=== PATIENT | female | born 1980 | race Caucasian/White ===

== ENCOUNTER 2020-10-24 11:56 | Outpatient (REF) | payer OTHER, SELFPAY ==
--- NOTE | ~2020-10-24 | XR_ITS ---
EXAMINATION: XR KNEE, LEFT CLINICAL INFORMATION: Pain left knee COMPARISON: Left knee 12/15/2013 TECHNIQUE: 3 views of the left knee. FINDINGS: There is mild loss of patellar femoral compartment joint space. The medial and lateral compartment joint space is normal. No loose bodies, fracture or joint effusion seen. There is a large joint proximal tibial osteochondroma extending of the left proximal lateral cortex laterally. No soft tissue thickening or calcification seen. XR/XR knee LT 3V IMPRESSION: Mild narrowing of patellofemoral compartment left knee likely early degenerative changes. 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
== END 2020-10-24 11:57 | disposition home or self-care (01) ==
LOC: HO.XRAY 11:56
PROVIDERS: PCP Internal Medicine; Visit Provider Internal Medicine
DX: M25.562 Pain in left knee (principal)
CPT/HCPCS: 73562

== ENCOUNTER 2021-01-16 15:28 | Outpatient (REF) | payer OTHER, SELFPAY ==
--- NOTE | ~2021-01-16 | XR_ITS ---
EXAMINATION: XR HIP, RIGHT CLINICAL INFORMATION: Right hip pain. COMPARISON: 03/19/2018 TECHNIQUE: Two views of the right hip. FINDINGS: Once again, no significant abnormality is seen involving the hip joint. Joint space well maintained. No fractures or significant degenerative change is present. XR/XR hip RT min 2V IMPRESSION: Unremarkable unchanged right hip.
== END 2021-01-16 15:29 | disposition home or self-care (01) ==
LOC: HO.XRAY 15:28
PROVIDERS: PCP Internal Medicine; Visit Provider Student in an Organized Health Care Education/Training Program
DX: M25.551 Pain in right hip (principal); G89.29 Other chronic pain
CPT/HCPCS: 73502; 99212

== ENCOUNTER 2021-01-18 19:04 | Outpatient (REF) | payer OTHER, SELFPAY ==
--- NOTE | ~2021-01-18 | MR_ITS ---
EXAMINATION: MR HIP WITHOUT CONTRAST, RIGHT CLINICAL INFORMATION: Right hip pain. COMPARISON: Right hip MRI dated November 14, 2018. TECHNIQUE: MRI of the right hip was obtained using routine sequences on a high-field strength magnet. FINDINGS: Bones/Cartilage: The bone marrow signal intensity is within normal limits. No fracture line or bone marrow edema. The sacroiliac joints and symphysis pubis are within normal limits. No erosion or periosteal edema. Right hip cartilage is preserved. Labrum: Partial tear of the anterior labrum (8:8) remaining labrum is normal signal morphology. Ligament/capsule: No capsular thickening. Visualized ligaments are intact. Tendons: The hamstring origins and tendon insertions are intact. Miscellaneous: No bursal fluid is seen. The muscles are normal in signal intensity and morphology. Normal physiologic volume of pelvic ascites. Uterus is anteverted. No adnexal mass. Nabothian cysts noted. Ovaries are normal in appearance. Visualized small and large bowel are normal in caliber. No inguinal hernia. No pelvic or inguinal lymphadenopathy. MR/MR hip RT wo con IMPRESSION: Right hip: 1. Small partial tear in the anterior labrum. 2. Preserved hip articular cartilage.
== END 2021-01-18 19:05 | disposition home or self-care (01) ==
LOC: HO.MRI 19:04
PROVIDERS: Visit Provider Student in an Organized Health Care Education/Training Program
DX: M25.551 Pain in right hip (principal)
CPT/HCPCS: 73721

== ENCOUNTER 2021-02-19 09:54 | Outpatient (REF) | payer OTHER, SELFPAY ==
[2021-02-19 10:31] LABS: MANUAL DIFF FLAG NO
[2021-02-19 10:36] LABS: Basophils Percent Auto 0.4 % (0-2); Eosinophils Percent Auto 0.8 % (0-4); Hematocrit 34.4 % (37-47); Hemoglobin 10.6 g/dl (12.0-16.0); Lymphocytes Absolute Auto 1.9 X10*3/uL (1.2-4.9); Lymphocytes Percent Auto 38.3 % (20-40); Mean Corpuscular HGB Conc 30.8 g/dl (31.0-35.0); Mean Corpuscular Hemoglobin 24.8 pg (27.0-33.0); Mean Corpuscular Volume 80.6 fL (80-98); Mean Platelet Volume 11.4 fL (9.4-12.3); Monocytes Absolute Auto 0.3 X10*3/uL (0.1-1.2); Neutrophils Absolute Auto 2.6 X10*3/uL (2.0-8.3); Neutrophils Percent Auto 53.5 % (45-73); Platelet Count 187 X10*3/uL (160-400); Red Blood Count 4.27 X10*6/uL (4.20-5.50); Red Cell Distribution Width 16.4 % (11.0-16.0); White Blood Count 4.9 X10*3/uL (4.8-10.8)
[2021-02-19 11:00] LABS: Alanine Aminotransferase 23 U/L (0-31); Albumin Level 4.1 g/dL (3.5-5.0); Alkaline Phosphatase 46 U/L (39-117); Anion Gap 11 (12-20); Aspartate Amino Transferase 24 U/L (5-31); Bilirubin Total 0.5 mg/dL (0.0-1.0); Blood Urea Nitrogen 11 mg/dL (9-16); Carbon Dioxide 24 mmol/L (22-29); Chloride 109 mmol/L (96-108); Cholesterol 154 mg/dL; Estimated Glomerular Filt Rate > 60; Glucose Fasting 93 mg/dL (60-99); HDL Cholesterol 60 mg/dL; LDL Cholesterol Calculated 85 mg/dl; Potassium 4.5 mmol/L (3.3-5.1); Sodium 139 mmol/L (135-145); Total Protein 7.1 g/dL (6.5-8.0); Triglycerides 49 mg/dL
[2021-02-19 11:22] LABS: Thyroid Stimulating Hormone 1.41 uIU/mL (0.32-4.0)
[2021-02-23 14:01] LABS: Vitamin D 25-OH, D2 <4 ng/mL; Vitamin D 25-OH, D3 20 ng/mL; Vitamin D 25-OH, Total 20 ng/mL (30-100)
== END 2021-02-19 09:55 | disposition home or self-care (01) ==
LOC: HO.LAB 09:54
PROVIDERS: PCP Internal Medicine; Visit Provider Internal Medicine
DX: E55.9 Vitamin D deficiency, unspecified (principal); E66.9 Obesity, unspecified; R42 Dizziness and giddiness
CPT/HCPCS: 36415; 80053; 80061; 82306; 84443; 85025

== ENCOUNTER 2021-07-02 14:14 | Outpatient (REF) | payer OTHER, SELFPAY | END 2021-07-02 14:15 | disposition home or self-care (01) | LOC: HO.LNP 14:14 | PROVIDERS: Visit Provider Physician Assistant | DX: Z20.822 Contact with and (suspected) exposure to COVID-19 (principal); J02.9 Acute pharyngitis, unspecified | CPT/HCPCS: U0003; U0005 ==

== ENCOUNTER 2021-08-07 09:23 | Outpatient (REF) | payer OTHER, SELFPAY ==
[2021-08-11 16:31] LABS: HPV mRNA E6/E7 rflx Not Detected (Not Detected)
== END 2021-08-07 09:24 | disposition home or self-care (01) ==
LOC: HO.LAB 09:23
PROVIDERS: Visit Provider Advanced Practice Midwife
DX: Z01.419 Encounter for gynecological examination (general) (routine) without abnormal findings (principal); Z11.51 Encounter for screening for human papillomavirus (HPV)
CPT/HCPCS: 87624; 88142

== ENCOUNTER 2021-08-13 11:15 | Outpatient (REF) | payer OTHER, SELFPAY ==
--- NOTE | ~2021-08-13 | MM_ITS ---
EXAMINATION: MM SCREENING DIGITAL BREAST TOMOSYNTHESIS, BILATERAL CLINICAL INFORMATION: Screening. Asymptomatic. 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 The lifetime risk of breast cancer based on the Tyrer-Cuzick Model is 8%. COMPARISON: Mammography: 12/13/2014 (baseline) TECHNIQUE: Digital breast tomosynthesis is performed in both the craniocaudal and mediolateral oblique views along with computer-aided detection (CAD). Synthesized 2D images are generated from the tomosynthesis. FINDINGS: There are scattered areas of fibroglandular density (ACR BI-RADS breast composition Category b). Breast tissue composition borders on predominantly fatty. Breasts are symmetrically decreased in size with mild increased breast tissue attenuation consistent with the intentional weight loss. Background stromal markings are otherwise stable. There is no mass or architectural abnormality or abnormal calcifications. No significant changes. MM/MM tomosynthesis screening BI IMPRESSION: No mammographic evidence of malignancy. ASSESSMENT: BI-RADS 2: Benign RECOMMENDATION: Routine annual mammography screening. This patient's information was entered into a reminder system with a target due date for their next mammogram.
== END 2021-08-13 11:16 | disposition home or self-care (01) ==
LOC: HO.MAMMO 11:15
PROVIDERS: PCP Internal Medicine; Visit Provider Advanced Practice Midwife
DX: Z12.31 Encounter for screening mammogram for malignant neoplasm of breast (principal)
CPT/HCPCS: 77063; 77067

== ENCOUNTER → 2021-11-01 10:34 | Outpatient (BNVA) | payer OTHER, SELFPAY | PROVIDERS: PCP Internal Medicine; Visit Provider Nurse Practitioner Family | DX: M25.551 Pain in right hip (principal); G89.29 Other chronic pain; R20.0 Anesthesia of skin | CPT/HCPCS: 99212 ==

== ENCOUNTER → 2021-11-14 14:48 | Outpatient (BNVA) | payer OTHER, SELFPAY | PROVIDERS: PCP Internal Medicine; Visit Provider Orthopaedic Surgery | DX: Z13.89 Encounter for screening for other disorder (principal) ==

== ENCOUNTER 2021-11-30 08:14 | Outpatient (REF) | payer OTHER, SELFPAY ==
[2021-11-30 09:27] LABS: Alanine Aminotransferase 16 U/L (0-31); Albumin Level 4.1 g/dL (3.5-5.0); Alkaline Phosphatase 46 U/L (39-117); Anion Gap 12 (12-20); Aspartate Amino Transferase 21 U/L (5-31); Bilirubin Total 0.3 mg/dL (0.0-1.0); Blood Urea Nitrogen 15 mg/dL (9-16); Calcium 9.5 mg/dL (8.4-10.2); Carbon Dioxide 24 mmol/L (22-29); Chloride 107 mmol/L (96-108); Estimated Glomerular Filt Rate > 60; Glucose Random 85 mg/dL (60-115); Potassium 3.9 mmol/L (3.3-5.1); Sodium 139 mmol/L (135-145)
== END 2021-11-30 08:15 | disposition home or self-care (01) ==
LOC: HO.LAB 08:14
PROVIDERS: PCP Internal Medicine; Visit Provider Nurse Practitioner Family
DX: M25.551 Pain in right hip (principal); G89.29 Other chronic pain
CPT/HCPCS: 36415; 80053

== ENCOUNTER → 2021-12-04 14:58 | Outpatient (BNVA) | payer OTHER, SELFPAY | PROVIDERS: PCP Internal Medicine; Visit Provider Physician Assistant | DX: M54.16 Radiculopathy, lumbar region (principal) | CPT/HCPCS: 99212 ==

== ENCOUNTER → 2021-12-18 14:42 | Outpatient (BNVA) | payer OTHER, SELFPAY | PROVIDERS: PCP Internal Medicine; Visit Provider Orthopaedic Surgery | DX: G56.01 Carpal tunnel syndrome, right upper limb (principal) | CPT/HCPCS: 99202 ==

== ENCOUNTER → 2022-01-16 08:22 | Outpatient (BNVA) | payer OTHER, SELFPAY | PROVIDERS: PCP Internal Medicine; Visit Provider Anesthesiology | DX: M54.16 Radiculopathy, lumbar region (principal); M47.816 Spondylosis without myelopathy or radiculopathy, lumbar region; M51.36 Other intervertebral disc degeneration, lumbar region; G89.4 Chronic pain syndrome; M24.159 Other articular cartilage disorders, unspecified hip | CPT/HCPCS: 99202 ==

== ENCOUNTER 2022-01-17 10:43 | Outpatient (REF) | payer OTHER, SELFPAY | END 2022-01-17 10:44 | disposition home or self-care (01) | LOC: HO.MAMMO 10:43 | PROVIDERS: Visit Provider Internal Medicine | DX: Z13.89 Encounter for screening for other disorder (principal) ==

== ENCOUNTER 2022-01-17 11:31 | Day surgery (SDC) | payer OTHER, SELFPAY ==
[2022-01-17 12:11] VITALS: BMI 34.4
[2022-01-17 12:24] VITALS: BP 113/84; PULSE 72; RESP 16; TEMP 36.1; O2SAT 100
--- NOTE | 2022-01-17 13:09 | MHC.SHP ---
Pre-Procedural Eval Section A Date of Service: 01/17/22 The patient is an INPATIENT: No Changes since office visit: No Cold of Flu in the past 2 weeks, No New Medical Problems, No Changes in Medication and No Patient answered all questions The History & Physical has been completed within 30 days and I have reviewed it.: Yes Section B Chief Complaint: CTS Allergies: Allergies Allergy/AdvReac Type Severity Reaction Status Date / Time tramadol [TRAMADOL] Allergy Intermediate DIZZY,N/V, Verified 01/16/22 08:34 nausea,dizziness, dizzy, nausea Plan I have reviewed the history and physical and performed a pertinent physical examination on my patient. No changes have occurred unless specified.
--- NOTE | 2022-01-17 13:09 | W.PM.OPN ---
Operative Note Operative Note Date of Service: 01/17/22 Narrative: Preop diagnosis: 1. Right Carpal tunnel syndrome Postop diagnosis: same Procedure: 1. right Carpal tunnel release Surgeon: Miranda Morales MD Anesthesia: local block using 1% lidocaine with epinephrine Findings: Thickened transverse carpal ligament. EBL: Less than 5 mL Specimens: None Complications: None Disposition: Brought to recovery room in stable condition Plan: Follow-up for 10-14 days for wound check and suture removal Indications: The patient is 41 years old, with right carpal tunnel syndrome that has been unresponsive to nonoperative management. The risks and benefits of operative treatment including but not limited to risk of damage to blood vessels, nerves, tendons, infection, persistent pain, persistent symptoms, or possible need for additional surgery were discussed with the patient and the patient wishes to proceed with surgery. Procedure: Once consent was obtained a local block was performed using a combination of 1% lidocaine with epinephrine. The patient was then brought back to the operating suite and placed on the operative table in supine position. A tourniquet was applied to the proximal aspect of the right upper extremity and the limb was prepped and draped in a standard surgical fashion. Once assured that we had a good block, a 1.5 cm longitudinal incision was made centered over the carpal tunnel. The incision was made through the skin to the subcutaneous tissues using a #15 blade. Dissection was made down to the level of the transverse carpal ligament with care being taken to protect the palmar cutaneous nerve. Once the transverse carpal ligament was clearly visualized, a longitudinal incision was made in the transverse carpal ligament 1st using a #15 blade, then using tenotomy scissors under direct visualization. Care was taken to look for and protect the motor branch of the median nerve when seen in this area. Once satisfied with our carpal tunnel release the wound was copiously irrigated with normal saline and hemostasis was obtained with a brief period of local pressure. The skin edges were reapproximated with some 5.0 nylon suture material and a sterile dressing was applied. The patient appears to have tolerated the procedure well and with no complications. All digits were well vascularized at the conclusion of the case.
[2022-01-17 15:15] VITALS: BP 126/89; PULSE 65; RESP 18; TEMP 37.4; O2SAT 100
== END 2022-01-17 15:25 | disposition home or self-care (01) ==
PROVIDERS: PCP Internal Medicine; Visit Provider Orthopaedic Surgery
PROC: (CPT 64721; principal; 2022-01-17 12:00)
DX: G56.01 Carpal tunnel syndrome, right upper limb (principal); R20.0 Anesthesia of skin; R20.2 Paresthesia of skin; R42 Dizziness and giddiness; E66.9 Obesity, unspecified; Z98.84 Bariatric surgery status; Z88.8 Allergy status to other drugs, medicaments and biological substances
CPT/HCPCS: 64721; J0171

== ENCOUNTER 2022-01-25 12:56 | Outpatient (REF) | payer OTHER, SELFPAY ==
[2022-02-01 07:06] LABS: HPV mRNA E6/E7 rflx Not Detected (Not Detected)
== END 2022-01-25 12:57 | disposition home or self-care (01) ==
LOC: HO.LAB 12:56
PROVIDERS: Visit Provider Advanced Practice Midwife
DX: Z12.4 Encounter for screening for malignant neoplasm of cervix (principal); Z11.51 Encounter for screening for human papillomavirus (HPV)
CPT/HCPCS: 87624; 88142; 99212

== ENCOUNTER → 2022-05-02 10:16 | Outpatient (BNVA) | payer OTHER, SELFPAY | PROVIDERS: PCP Internal Medicine; Visit Provider Nurse Practitioner Family | DX: M25.551 Pain in right hip (principal); M47.816 Spondylosis without myelopathy or radiculopathy, lumbar region; R22.42 Localized swelling, mass and lump, left lower limb; G56.01 Carpal tunnel syndrome, right upper limb; G89.29 Other chronic pain | CPT/HCPCS: 99212 ==

== ENCOUNTER 2022-05-24 14:58 | Outpatient (REF) | payer OTHER, SELFPAY ==
--- NOTE | ~2022-05-24 | XR_ITS ---
EXAMINATION: XR TIBIA AND FIBULA, LEFT CLINICAL INFORMATION: Localized swelling, mass and lump. COMPARISON: X-rays dated 10/24/2020 and MRI dated 03/22/2008 TECHNIQUE: AP and lateral views of the left tibia and fibula were obtained. FINDINGS: No change in size or appearance of a sessile osteochondroma along the lateral aspect of the proximal tibial metaphysis. No fractures. No dislocation. Soft tissues unremarkable. XR/XR tibia fibula LT 2V IMPRESSION: No change in size of the osteochondroma along the proximal lateral tibial metaphysis.
== END 2022-05-24 14:59 | disposition home or self-care (01) ==
LOC: HO.XRAY 14:58
PROVIDERS: PCP Internal Medicine; Visit Provider Nurse Practitioner Family
DX: R22.42 Localized swelling, mass and lump, left lower limb (principal)
CPT/HCPCS: 73590

== ENCOUNTER → 2022-05-28 07:52 | Outpatient (BNVA) | payer OTHER, SELFPAY | PROVIDERS: PCP Internal Medicine; Visit Provider Physician Assistant | DX: R22.40 Localized swelling, mass and lump, unspecified lower limb (principal) | CPT/HCPCS: 99202 ==

== ENCOUNTER 2022-06-19 15:42 | Outpatient (REF) | payer OTHER, SELFPAY ==
--- NOTE | ~2022-06-19 | MR_ITS ---
EXAMINATION: MR LOWER EXTREMITY WITHOUT CONTRAST, LEFT CLINICAL INFORMATION: Localized swelling, mass, lump COMPARISON: X-rays of the left tibia-fibula April 2022 and multiple prior radiographs dating back to September 2006. MR of the left lower extremity October 2006 without and with contrast and MRI of the left knee/lower extremity February 2008 without and with contrast. TECHNIQUE: MRI of the left lower extremity is performed without contrast on a high field MRI scanner. FINDINGS: Again noted is the eccentric osseous lesion in the proximal metaphysis of the tibia with intramedullary continuity consistent with an osteochondroma. The lesion is essentially unchanged in size and signal compared to prior. This measures up to 2.8 cm transverse, 3 cm AP and 6.7 cm craniocaudal. There is minimal intermediate signal heterogeneity within the central portion of the exostosis, unchanged compared to prior. There is minimal, if any, increased T2 signal along the surface compatible with an up to 1 mm cartilaginous cap along the surface of the lesion. The lesion abuts the anterior aspect of the proximal fibula as before. The remaining visualized bone and joints are unremarkable. MUSCLES/TENDONS: Some very mild increased T2 signal within the medial head of the gastrocnemius compatible with mild muscle strain. SUBCUTANEOUS SOFT TISSUES: Unremarkable. MR/MR lower leg LT wo con IMPRESSION: 1. Stable appearance of the osteochondroma of the proximal tibia. 2. Minimal if any change in the appearance of the cartilaginous cap. The cartilage cap appears thinner or less apparent compared to prior examination. This may be in part due to slight differences in the technique of the examination given the larger [id number] on the present examination compared with most recent 2007. 3. Minimal muscle strain of the medial head of the gastrocnemius.
== END 2022-06-19 15:43 | disposition home or self-care (01) ==
LOC: HO.MRI 15:42
PROVIDERS: Visit Provider Physician Assistant
DX: R22.40 Localized swelling, mass and lump, unspecified lower limb (principal)
CPT/HCPCS: 73718

== ENCOUNTER → 2022-07-02 07:54 | Outpatient (BNVA) | payer OTHER, SELFPAY | PROVIDERS: PCP Internal Medicine; Visit Provider Physician Assistant | DX: D16.22 Benign neoplasm of long bones of left lower limb (principal) | CPT/HCPCS: 99212 ==

== ENCOUNTER 2022-10-05 08:53 | Outpatient (REF) | payer OTHER, SELFPAY ==
--- NOTE | ~2022-10-05 | MM_ITS ---
EXAMINATION: MM SCREENING DIGITAL BREAST TOMOSYNTHESIS, BILATERAL CLINICAL INFORMATION: Screening. Asymptomatic. The lifetime risk of breast cancer based on the Tyrer-Cuzick Model is 9%. COMPARISON: Mammography: 08/13/2021, 12/13/2014 (baseline) TECHNIQUE: Digital breast tomosynthesis is performed in both the craniocaudal and mediolateral oblique views along with computer-aided detection (CAD). Synthesized 2D images are generated from the tomosynthesis. FINDINGS: There are scattered areas of fibroglandular density (ACR BI-RADS breast composition Category b). Breast tissue composition borders on predominantly fatty. Background stromal and fibroglandular densities are unremarkable. There is no significant mass or architectural abnormality or developing density. There are 2 small circumscribed nodes posterior outer left breast on CC view, not previously within [id number]. No abnormal calcifications. The axilla and skin contours are unremarkable. MM/MM tomosynthesis screening BI IMPRESSION: No mammographic evidence of malignancy. ASSESSMENT: BI-RADS 2: Benign RECOMMENDATION: Routine annual mammography screening. This patient's information was entered into a reminder system with a target due date for their next mammogram.
== END 2022-10-05 08:54 | disposition home or self-care (01) ==
LOC: HO.MAMMO 08:53
PROVIDERS: PCP Internal Medicine; Visit Provider Internal Medicine
DX: Z12.31 Encounter for screening mammogram for malignant neoplasm of breast (principal)
CPT/HCPCS: 77063; 77067

== ENCOUNTER 2023-01-08 09:00 | Outpatient (RCR) | payer OTHER, SELFPAY | END 2023-01-30 08:55 | disposition home or self-care (01) | LOC: HO.PT 09:00 | PROVIDERS: PCP Internal Medicine; Visit Provider Orthopaedic Surgery Orthopaedic Trauma | DX: D16.22 Benign neoplasm of long bones of left lower limb (principal) | CPT/HCPCS: 97110; 97140; 97161 ==

== ENCOUNTER 2023-05-22 08:11 | Outpatient (REF) | payer OTHER, SELFPAY ==
[2023-05-22 09:16] LABS: Appearance Urine Clear; Color Urine Yellow; Glucose Urine UA Negative (Negative); Leukocyte Esterase Urine Moderate (2+) (Negative); Nitrite Urine Negative (Negative); Specific Gravity - Urine 1.015 (1.005-1.025); UMIC TRIGGER UACC YES; Urine Blood Negative (Negative); Urine Ketones Negative (Negative); Urine Protein Negative (Neg-Trace)
[2023-05-22 09:22] LABS: Bacteria Urine None Seen (None Seen); Hyaline Casts Urine 0-2 /LPF (0-2); Squamous Epithelial Cell Urine 0-2 /HPF (0-2); UACC Culture Trigger YES
== END 2023-05-22 08:12 | disposition home or self-care (01) ==
LOC: HO.LAB 08:11
PROVIDERS: PCP Internal Medicine; Visit Provider Internal Medicine
DX: R39.9 Unspecified symptoms and signs involving the genitourinary system (principal)
CPT/HCPCS: 81001; 87086; 87088; 87186

== ENCOUNTER 2023-08-07 09:47 | Outpatient (AMB) | payer OTHER, SELFPAY ==
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
[2023-08-07 09:54] VITALS: BP 110/70; PULSE 89; TEMP 36.3; O2SAT 100; BMI 37.5
== END 2023-08-07 10:49 | disposition home or self-care (01) ==
PROVIDERS: PCP Internal Medicine; Visit Provider Nurse Practitioner Family
DX: M25.551 Pain in right hip (principal); G89.29 Other chronic pain; M47.27 Other spondylosis with radiculopathy, lumbosacral region; M70.61 Trochanteric bursitis, right hip; R76.0 Raised antibody titer; I73.00 Raynaud's syndrome without gangrene
CPT/HCPCS: 20610; 99214

== ENCOUNTER → 2023-08-07 09:47 | Outpatient (BNVA) | payer OTHER, SELFPAY | PROVIDERS: PCP Internal Medicine; Visit Provider Nurse Practitioner Family | DX: M70.61 Trochanteric bursitis, right hip (principal); M47.27 Other spondylosis with radiculopathy, lumbosacral region; M25.551 Pain in right hip; R76.0 Raised antibody titer; I73.00 Raynaud's syndrome without gangrene; G89.29 Other chronic pain | CPT/HCPCS: 20610 ==

== ENCOUNTER 2023-08-07 11:03 | Outpatient (REF) | payer OTHER, SELFPAY ==
[2023-08-07 13:08] LABS: MANUAL DIFF FLAG NO
[2023-08-07 13:13] LABS: Basophils Percent Auto 0.3 % (0-2); Eosinophils Percent Auto 0.3 % (0-4); Hematocrit 30.4 % (37.0-47.0); Hemoglobin 8.7 g/dl (12.0-16.0); Imm Gran Abs Auto 0.02 X10*3/uL (0.00-0.03); Imm Gran Pct Auto 0.3 % (0.0-0.4); Lymphocytes Absolute Auto 1.9 X10*3/uL (1.2-4.9); Lymphocytes Percent Auto 33.4 % (20-40); Mean Corpuscular HGB Conc 28.6 g/dl (31.0-35.0); Mean Corpuscular Hemoglobin 19.7 pg (27.0-33.0); Mean Corpuscular Volume 68.9 fL (80.0-98.0); Mean Platelet Volume 10.2 fL (9.4-12.3); Monocytes Absolute Auto 0.3 X10*3/uL (0.1-1.2); Monocytes Percent Auto 5.8 % (2-11); Neutrophils Absolute Auto 3.4 x10*3/uL (2.0-8.3); Neutrophils Percent Auto 59.9 % (45-73); Platelet Count 262 X10*3/uL (160-400); Red Blood Count 4.41 X10*6/uL (4.20-5.50); Red Cell Distribution Width 20.5 % (11.0-16.0); White Blood Count 5.7 X10*3/uL (4.8-10.8)
[2023-08-07 13:35] LABS: Alanine Aminotransferase 14 U/L (0-31); Albumin Level 4.2 g/dL (3.5-5.0); Alkaline Phosphatase 49 U/L (39-117); Anion Gap 12 (12-20); Aspartate Amino Transferase 20 U/L (5-31); Bilirubin Total 0.4 mg/dL (0.0-1.0); Blood Urea Nitrogen 10 mg/dL (9-16); C Reactive Protein < 0.10 mg/dL (< or = 0.50); Calcium 9.3 mg/dL (8.4-10.2); Carbon Dioxide 25 mmol/L (22-29); Chloride 106 mmol/L (96-108); Estimated Glomerular Filt Rate > 60; Glucose Random 89 mg/dL (60-115); Potassium 4.1 mmol/L (3.3-5.1); Sodium 139 mmol/L (135-145); Total Protein 7.6 g/dL (6.5-8.0)
[2023-08-07 13:52] LABS: Erythrocyte Sedimentation Rate 14 MM/HR (0-20)
[2023-08-11 09:38] LABS: Complement C3 16 mg/dL (83-193)
[2023-08-11 20:59] LABS: Antibody to SS-A Antigen <1.0 NEG AI (<1.0 NEG); Antibody to SS-B Antigen <1.0 NEG AI (<1.0 NEG); SM/Ribonucleoprotein Ab <1.0 NEG AI (<1.0 NEG); Smith Protein <1.0 NEG AI (<1.0 NEG)
[2023-08-13 11:08] LABS: Anti Nuclear Antibody Screen NEGATIVE (NEGATIVE)
[2023-08-15 15:03] LABS: Cyclic Citrullinated Peptide <16 UNITS
== END 2023-08-07 11:04 | disposition home or self-care (01) ==
LOC: HO.10HDL 11:03
PROVIDERS: Visit Provider Nurse Practitioner Family
DX: I73.00 Raynaud's syndrome without gangrene (principal); M79.674 Pain in right toe(s); M79.675 Pain in left toe(s); G89.29 Other chronic pain; M79.641 Pain in right hand; M79.642 Pain in left hand; Z79.899 Other long term (current) drug therapy
CPT/HCPCS: 36415; 80053; 85025; 85652; 86038; 86140; 86160; 86200; 86235

== ENCOUNTER 2023-10-01 10:52 | Outpatient (AMB) | payer OTHER, SELFPAY ==
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
[2023-10-01 13:51] VITALS: BP 112/60; PULSE 88; TEMP 36.2; O2SAT 99; BMI 38.0
== END 2023-10-01 14:51 | disposition home or self-care (01) ==
PROVIDERS: PCP Internal Medicine; Visit Provider Nurse Practitioner Family
DX: M35.89 Other specified systemic involvement of connective tissue (principal); G89.29 Other chronic pain; M47.27 Other spondylosis with radiculopathy, lumbosacral region; I73.00 Raynaud's syndrome without gangrene; M70.61 Trochanteric bursitis, right hip; D64.9 Anemia, unspecified
CPT/HCPCS: 99213

== ENCOUNTER → 2023-10-01 10:52 | Outpatient (BNVA) | payer OTHER, SELFPAY | PROVIDERS: PCP Internal Medicine; Visit Provider Nurse Practitioner Family | DX: M25.551 Pain in right hip (principal); M47.27 Other spondylosis with radiculopathy, lumbosacral region; M70.61 Trochanteric bursitis, right hip; M35.9 Systemic involvement of connective tissue, unspecified; I73.00 Raynaud's syndrome without gangrene; D64.9 Anemia, unspecified; G89.29 Other chronic pain | CPT/HCPCS: 99212 ==

== ENCOUNTER 2023-10-11 09:28 | Outpatient (REF) | payer OTHER, SELFPAY ==
--- NOTE | ~2023-10-11 | MM_ITS ---
EXAMINATION: MM SCREENING DIGITAL BREAST TOMOSYNTHESIS, BILATERAL CLINICAL INFORMATION: Screening. Asymptomatic. COMPARISON: Mammography: This study is compared with prior exams dating back to 2015. TECHNIQUE: Digital breast tomosynthesis is performed in both the craniocaudal and mediolateral oblique views along with computer-aided detection (CAD). Synthesized 2D images are generated from the tomosynthesis. FINDINGS: There are scattered areas of fibroglandular density (ACR BI-RADS breast composition Category b). There are no significant masses, abnormal calcifications, or other abnormalities. MM/MM tomosynthesis screening BI IMPRESSION: No mammographic evidence of malignancy. ASSESSMENT: BI-RADS BI-RADS 1 - Negative RECOMMENDATION: Routine annual mammography screening. 1 year F/U This examination should not preclude the clinical evaluation of a suspicious palpable abnormality. This patient's information was entered into a reminder system with a target due date for their next mammogram.
== END 2023-10-11 09:29 | disposition home or self-care (01) ==
LOC: HO.MAMMO 09:28
PROVIDERS: PCP Internal Medicine; Visit Provider Internal Medicine
DX: Z12.31 Encounter for screening mammogram for malignant neoplasm of breast (principal)
CPT/HCPCS: 77063; 77067

== ENCOUNTER → 2023-10-11 09:30 | Outpatient (BNV) | payer OTHER, SELFPAY | PROVIDERS: PCP Internal Medicine; Visit Provider Radiology Diagnostic Radiology | DX: Z12.31 Encounter for screening mammogram for malignant neoplasm of breast (principal) | CPT/HCPCS: 77063; 77067 ==

== ENCOUNTER 2023-10-22 07:58 | Outpatient (AMB) | payer OTHER, SELFPAY ==
[2023-10-22 08:02] VITALS: BP 120/72; BMI 37.9
--- NOTE | 2023-10-22 08:02 | MHC.PC.OV ---
Vital Signs 10/22/23 08:02 Height 5 ft 4 in Weight 221 lb BMI 37.9 BP 120/72 Blood Pressure Location Lt brachial Position Sitting Intake Visit Reasons: Rash all over Intake Note: Patient here for a rash going on a few days Can Cutter Required: No Accompanied by: Self / Same As Patient Allergies tramadol [TRAMADOL] Allergy (Intermediate, Verified 10/22/23 08:22) DIZZY,N/V, nausea,dizziness, dizzy, nausea Medication List - Last Reconciled 10/22/23 by Alee Melendez MD diclofenac sodium 1% (Voltaren Arthritis Pain) 2 grams topical BID ferrous sulfate 325 mg PO DAILY gabapentin 600 mg PO BID 30 days Tobacco use date assessed: 10/22/23 Dental Screening Dental Screen Date: 10/22/23 Did you have a dental visit in the last 12 months?: No Did you have a dental problem in the last 6 months where you did not have access to dental care?: No Was dental information given to patient?: Patient has dentist HPI HPI Comments History of Present Illness Details This is a 43-year-old female with anemia, undifferentiated connective tissue disease and obesity that comes today complaining of a rash that started 5 days ago after eating meatballs that where season with grapes. She did took Benadryl that night and went away. She said the maculopapular pruritic rash restarted 2 days after taking Benadryl out of no where. The rash involves bilateral hip area and lower abdomen. Denies any new plant, detergent or clothing. No one else has a rash in her household. No fever. No other associated symptoms. For her anemia I will order a CBC. She has undifferentiated connective tissue disease follow by Rheumatology which wants her to see Ophthalmology. She is obese with a BMI of 37.9 and was advised to do diet and exercise as tolerated to reach BMI goal less than 30. [facility] Medical History (Updated 10/22/23 @ 10:02 by Alee Melendez MD) Osteochondroma of left lower leg Anemia Undifferentiated connective tissue disease Abnormal antibody titer Spondylosis of lumbosacral spine with radiculopathy Trochanteric bursitis, right hip Bilateral hand pain Chronic pain of toes of both feet Raynaud phenomenon Dizziness Obese Left knee pain Surgical History H/O carpal tunnel repair S/P ORIF (open reduction internal fixation) fracture History of gastrectomy History of tubal ligation History of appendectomy Family History Mother No problems noted. Father Diabetes mellitus Maternal Aunt Breast cancer Social History Housing: House Alcohol intake: current Alcohol intake frequency: holidays/special occasions only Alcohol type: hard liquor Patient Tobacco Use Status: Never used Tobacco e-Cigarette/Vaping Use: Never Used Second Hand Smoke Exposure: No service: No Current occupational status: unemployed Cognitive needs: No Hearing needs: No Vision needs: Yes Female Reproductive History Menstrual Age of Menarche: 13 Questionnaire PHQ-9 Over the last 2 weeks, how often have you been bothered by any of the following problems? 1. Little interest or pleasure in doing things: several days 2. Feeling down, depressed, or hopeless: several days 3. Trouble falling or staying asleep, or sleeping too much: more than half the days 4. Feeling tired or having little energy: nearly every day 5. Poor appetite or overeating: not at all 6. Feeling bad about yourself - or that you are a failure or have let yourself or your family down: not at all 7. Trouble concentrating on things, such as reading the newspaper or watching television: not at all 8. Moving or speaking so slowly that other people could have noticed. Or the opposite - being so fidgety or restless that you have been moving around a lot more than usual: several days 9. Thoughts that you would be better off or of hurting yourself in some way: not at all Total score: 8 Depression Screening Interpretation: Positive Depression Screening Follow-up: Existing condition Depression Screening Done: Yes 76985 - PHQ-9 Billing: Yes Source: Developed by Drs. Braulio Cloud, Sendy Ayala, Thiago Mills and colleagues, with an educational adam from [employer]. Thrive Questionnaire Date Thrive assessed: 10/22/23 I am a: Patient What is your living situation today?: I have a steady place to live Within the past 12 months, did the food you bought not last and you didn't have the money to get more?: Never true Within the past 12 months, did you worry whether your food would run out before you got money to buy more?: Never true Do you have trouble paying for medicines?: No Do you have trouble getting transportation to medical appointments?: No Do you have trouble paying your heating and electricity bill?: No Do you have trouble taking care of your child, family member or friend?: No Do you have trouble with day-to-day activities such as bathing, preparing meals, shopping, managing finances, etc.?: No Are you currently unemployed and looking for a job?: No Are you interested in more education?: No Please select the resources that you would like help with: None Currently or been in a relationship where the following occur: no concerns reported THRIVE Score: 0 AUDIT C Alcohol Use Questionnaire (AUDIT-C) 1. How often do you have a drink containing alcohol?: Monthly or less 2. How many drinks containing alcohol do you have on a typical day when you are drinking?: 1 or 2 3. How often do you have six or more drinks on one occasion?: Never Total Score: 1 SEBAS-7 AMB Questionnaire SEBAS-7 Date SEBAS - 7 assessed: 10/22/23 Feeling nervous, anxious, or on edge: 1 = Several days Not being able to stop or control worryin = Not at all Worrying too much about different things: 1 = Several days Trouble relaxin = Several days Being so restless that it is hard to sit still: 1 = Several days Becoming easily annoyed or irritable: 1 = Several days Feeling afraid as if something awful might happen: 1 = Several days Total SEBAS-7 score (0-4 normal; 5-9 mild; 10-14 moderate; 15-21 severe): 6 Source: Developed by Drs. Braulio Cloud, Sendy Ayala, Thiago Mills and colleagues, with an educational adam from [employer]. SEBAS-7 Assessment Billing SEBAS-7 Assessment Tool: SEBAS-7 Assessment 08638 Review of Systems Const All systems reviewed & are unremarkable except as noted in HPI and below Eyes Reports no additional complaints, Denies change in vision and Denies other visual disturbances ENT Reports sore throat Card Denies chest pain at rest, Denies chest pain with activity, Denies edema, Denies irregular heart rhythm, Denies claudication, Denies dyspnea, Denies dyspnea on exertion, Denies orthopnea, Denies paroxysmal nocturnal dyspnea and Denies slow heart rate Resp Denies cough, Denies dyspnea and Denies dyspnea on exertion Physical exam (Primary Care) Vital Signs: Last Vital Signs BP 120/72 10/22/23 08:02 BMI result Body Mass Index 37.9 Tobacco/Smoking Status: Tobacco use Status Tobacco use date assessed 10/22/23 10/22/23 08:09 Patient Tobacco Use Status Never used Tobacco 10/22/23 08:09 e-Cigarette/Vaping Use Never Used 10/22/23 08:09 PHQ-9: PHQ-9 Score PHQ-9: Total score 8 10/22/23 08:25 Depression Screening Interpretation: Positive Depression Screening Follow-up: Existing condition Thrive Assessment: Date of Thrive Assessment Date Thrive assessed 10/22/23 10/22/23 08:09 Currently or been in a relationship where the following occur: no concerns reported Resp Effort & Inspection: normal respiratory effort Auscultation: clear to auscultation bilaterally Cardio Jugular venous distension: no JVD Rate: regular rate Rhythm: regular rhythm Heart sounds: S1 normal heart sound present and S2 normal heart sound present Extrem General: Yes full ROM Assessment and Plan Assessment & Plan (1) Rash: Code(s): R21 - Rash and other nonspecific skin eruption Plan: RAST ordered. Start cetirizine. (2) Undifferentiated connective tissue disease: Code(s): M35.9 - Systemic involvement of connective tissue, unspecified Plan: Follow-up with rheumatology. (3) Anemia: Code(s): D64.9 - Anemia, unspecified Qualifiers: Anemia type: iron deficiency Iron deficiency anemia type: chronic blood loss Qualified Code(s): D50.0 - Iron deficiency anemia secondary to blood loss (chronic) Plan: Continue ferrous sulfate. Repeat hemoglobin. (4) Class 2 obesity with body mass index (BMI) of 37.0 to 37.9 in adult: Code(s): E66.9 - Obesity, unspecified; Z68.37 - Body mass index [BMI] 37.0-37.9, adult Qualifiers: Obesity type: due to excess calories Serious obesity comorbidity presence: without serious comorbidity Qualified Code(s): E66.09 - Other obesity due to excess calories; Z68.37 - Body mass index [BMI] 37.0-37.9, adult Plan: Start diet and exercise. BMI goal is less than 30. Orders: Orders Complete Blood Count Auto Diff Today D64.9 - Anemia, unspecified Rast Allergen Today R21 - Rash and other nonspecific skin eruption IRON PROFILE Today D64.9 - Anemia, unspecified Vitamin D 25-OH Total Today E55.9 - Vitamin D deficiency, unspecified Vitamin B12 and Folate Today E53.8 - Deficiency of other specified B group vitamins Lipid Panel Today E66.1 - Drug-induced obesity, Z68.37 - Body mass index [BMI] 37.0-37.9, adult [place]. Panel Fast Today E66.1 - Drug-induced obesity, Z68.37 - Body mass index [BMI] 37.0-37.9, adult SARS-CoV2/FLU/RSV Today R09.89 - Other specified symptoms and signs involving the circulatory and respiratory systems Medications: New cetirizine (Allergy Relief (cetirizine)) 10 mg PO DAILY 30 days PRN 30 tabs 1RF allergy symptoms amoxicillin 500 mg PO BID 14 tabs 0RF 7 days Coding Level of Care Code Est Pt Level 4 (72395) Diagnoses Rash R21 Undifferentiated connective tissue disease M35.9 Iron deficiency anemia due to chronic blood loss D50.0 Anemia type: iron deficiency Iron deficiency anemia type: chronic blood loss Class 2 obesity due to excess calories without serious comorbidity with body mass index (BMI) of 37.0 to 37.9 in adult E66.09; Z68.37 Obesity type: due to excess calories Serious obesity comorbidity presence: without serious comorbidity Additional Codes SEBAS-7 Assessment Billing - SEBAS-7 Assessment Tool: SEBAS-7 Assessment 33629 ([id number]) Time Spent (min) 22
== END 2023-10-22 08:38 | disposition home or self-care (01) ==
PROVIDERS: PCP Internal Medicine; Visit Provider Internal Medicine
DX: R21 Rash and other nonspecific skin eruption (principal); M35.9 Systemic involvement of connective tissue, unspecified; E66.09 Other obesity due to excess calories; Z68.37 Body mass index [BMI] 37.0-37.9, adult; D50.0 Iron deficiency anemia secondary to blood loss (chronic)
CPT/HCPCS: 99214

== ENCOUNTER 2023-10-22 08:44 | Outpatient (REF) | payer OTHER, SELFPAY ==
[2023-10-22 09:02] LABS: MANUAL DIFF FLAG NO
[2023-10-22 09:38] LABS: Eosinophils Percent Auto 0.5 % (0-4); Hematocrit 30.8 % (37.0-47.0); Hemoglobin 8.9 g/dl (12.0-16.0); Imm Gran Abs Auto 0.02 X10*3/uL (0.00-0.03); Imm Gran Pct Auto 0.3 % (0.0-0.4); Lymphocytes Absolute Auto 1.2 X10*3/uL (1.2-4.9); Lymphocytes Percent Auto 20.2 % (20-40); Mean Corpuscular HGB Conc 28.9 g/dl (31.0-35.0); Mean Corpuscular Volume 69.1 fL (80.0-98.0); Mean Platelet Volume 10.3 fL (9.4-12.3); Monocytes Absolute Auto 0.5 X10*3/uL (0.1-1.2); Monocytes Percent Auto 8.9 % (2-11); Neutrophils Absolute Auto 4.1 x10*3/uL (2.0-8.3); Neutrophils Percent Auto 70.1 % (45-73); Platelet Count 227 X10*3/uL (160-400); Red Blood Count 4.46 X10*6/uL (4.20-5.50); Red Cell Distribution Width 20.9 % (11.0-16.0); White Blood Count 5.8 X10*3/uL (4.8-10.8)
[2023-10-22 09:50] LABS: Influenza A PCR NEGATIVE (Negative); Influenza B PCR NEGATIVE (Negative); Resp Syncy Virus RNA Qual PCR NEGATIVE (Negative); SARS COV2 PCR INHOUSE NEGATIVE (Negative)
[2023-10-22 10:11] LABS: Alanine Aminotransferase 12 U/L (0-31); Albumin Level 3.9 g/dL (3.5-5.0); Alkaline Phosphatase 46 U/L (39-117); Anion Gap 10 (12-20); Aspartate Amino Transferase 18 U/L (5-31); Bilirubin Total 0.4 mg/dL (0.0-1.0); Blood Urea Nitrogen 6 mg/dL (9-16); Calcium 8.9 mg/dL (8.4-10.2); Carbon Dioxide 25 mmol/L (22-29); Chloride 108 mmol/L (96-108); Cholesterol 150 mg/dL (<200); Estimated Glomerular Filt Rate > 60; Glucose Fasting 87 mg/dL (60-99); HDL Cholesterol 62 mg/dL (>40); Iron 17 mcg/dL (30-160); LDL Cholesterol Calculated 74 mg/dL (<100); Percent Iron Saturation 4 % (15-50); Potassium 3.5 mmol/L (3.3-5.1); Sodium 139 mmol/L (135-145); Total Iron Binding Capacity 411 mcg/dL (228-428); Total Protein 7.2 g/dL (6.5-8.0); Triglycerides 72 mg/dL (<150); Unsaturated Iron Binding 394 ug/dL
[2023-10-22 10:19] LABS: Vitamin D 25-OH Total 12.2 ng/mL (>30)
[2023-10-22 10:52] LABS: Folate 10.2 ng/mL (> or = 4.0); Vitamin B12 374 pg/mL (200-900)
[2023-10-24 10:59] LABS: Immunoglobulin A 200
[2023-10-24 11:01] LABS: Transglutaminase IgA <1.0
== END 2023-10-22 08:45 | disposition home or self-care (01) ==
LOC: HO.LAB 08:44
PROVIDERS: PCP Internal Medicine; Visit Provider Internal Medicine
DX: Z11.52 Encounter for screening for COVID-19 (principal); E55.9 Vitamin D deficiency, unspecified; E66.1 Drug-induced obesity; Z68.37 Body mass index [BMI] 37.0-37.9, adult; R09.89 Other specified symptoms and signs involving the circulatory and respiratory systems; D64.9 Anemia, unspecified; R21 Rash and other nonspecific skin eruption; E53.8 Deficiency of other specified B group vitamins
CPT/HCPCS: 0241U; 80053; 80061; 82306; 82607; 82746; 82784; 83540; 85025; 86003; 86364

== ENCOUNTER 2023-11-06 17:05 | Outpatient (AMB) | payer OTHER, SELFPAY ==
[2023-11-06 17:08] VITALS: BP 126/80; BMI 38.3
--- NOTE | 2023-11-06 17:08 | A.OFFPC_ITS ---
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: No Accompanied by: Self / Same As Patient Allergies tramadol [TRAMADOL] Allergy (Intermediate, Verified 11/07/23 12:24) DIZZY,N/V, nausea,dizziness, dizzy, nausea Medication List - Last Reconciled 11/07/23 by Alee Melendez MD cetirizine (Allergy Relief (cetirizine)) 10 mg PO DAILY PRN 30 days cholecalciferol (vitamin D3) 50 mcg PO DAILY 90 days diclofenac sodium 1% (Voltaren Arthritis Pain) 2 grams topical BID ferrous sulfate 325 mg PO DAILY gabapentin 600 mg PO BID 30 days semaglutide (weight loss) (Wegovy) 0.25 mg (0.5 mL) subcut QWEEK 30 days Tobacco use date assessed: 10/22/23 Dental Screening Dental Screen Date: 10/22/23 HPI HPI Comments History of Present Illness Details This is a 43-year-old female with undifferentiated connective tissue disease that comes today for her physical exam. Last mammogram was September 2023 and was normal. Last Pap smear was 2021 and was normal. She follows with rheumatology for her undifferentiated connective tissue disease and eye doctor exam is pending to start hydroxychloroquine. Denies any chest pain or shortness of breath. No fever or cough. Complains of chronic left knee pain after osteochondroma being removed. [facility] Medical History (Updated 11/07/23 @ 12:25 by Alee Melendez MD) Anemia Undifferentiated connective tissue disease Abnormal antibody titer Spondylosis of lumbosacral spine with radiculopathy Trochanteric bursitis, right hip Bilateral hand pain Chronic pain of toes of both feet Raynaud phenomenon Dizziness Obese Left knee pain Surgical History (Updated 11/06/23 @ 17:47 by Alee Melendez MD) Osteochondroma of left lower leg H/O carpal tunnel repair S/P ORIF (open reduction internal fixation) fracture History of gastrectomy History of tubal ligation History of appendectomy Family History Mother No problems noted. Father Diabetes mellitus Maternal Aunt Breast cancer Social History Housing: House Alcohol intake: current Alcohol intake frequency: holidays/special occasions only Alcohol type: hard liquor Patient Tobacco Use Status: Never used Tobacco e-Cigarette/Vaping Use: Never Used Second Hand Smoke Exposure: No service: No Current occupational status: unemployed Cognitive needs: No Hearing needs: No Vision needs: Yes Female Reproductive History Menstrual Age of Menarche: 13 Questionnaire Thrive Questionnaire Date Thrive assessed: 10/22/23 SEBAS-7 AMB Questionnaire SEBAS-7 Date SEBAS - 7 assessed: 10/22/23 Source: Developed by Drs. Braulio Cloud, Sendy Ayala, Tihago Mills and colleagues, with an educational adam from [employer]. Review of Systems Const All systems reviewed & are unremarkable except as noted in HPI and below Eyes Reports no additional complaints, Denies change in vision and Denies other visual disturbances Card Denies chest pain at rest, Denies chest pain with activity, Denies edema, Denies irregular heart rhythm, Denies claudication, Denies dyspnea, Denies dyspnea on exertion, Denies orthopnea, Denies paroxysmal nocturnal dyspnea and Denies slow heart rate Resp Denies cough, Denies dyspnea and Denies dyspnea on exertion Neuro Denies confusion Psych Denies confusion Physical exam (Primary Care) Vital Signs: Last Vital Signs BP 126/80 11/06/23 17:08 BMI result Body Mass Index 38.3 Tobacco/Smoking Status: Tobacco use Status Tobacco use date assessed 10/22/23 11/06/23 17:12 Patient Tobacco Use Status Never used Tobacco 11/06/23 17:12 e-Cigarette/Vaping Use Never Used 11/06/23 17:12 Thrive Assessment: Date of Thrive Assessment Date Thrive assessed 10/22/23 11/06/23 17:12 Const General: No confusion Orientation/consciousness: patient oriented x3 and No confusion HENMT Head: Yes normal to inspection, Yes normocephalic and Yes atraumatic Ears: external ears normal Eyes General: appearance normal, both eyes and all related structures Eyelids: Yes eyelids normal Conjunctivae: conjunctivae normal Neck Neck: Yes normal visual inspection and Yes supple Resp Effort & Inspection: normal respiratory effort Auscultation: clear to auscultation bilaterally Cardio Jugular venous distension: no JVD Rate: regular rate Rhythm: regular rhythm Heart sounds: S1 normal heart sound present and S2 normal heart sound present GI Inspection: Yes normal to inspection Palpation (GI): Soft to palpation and nontender Auscultation: normal bowel sounds Skin General skin exam: no rashes or lesions noted Neuro General: patient oriented x3, no focal motor deficits and No confusion Extrem General: Yes full ROM Assessment and Plan Assessment & Plan (1) Physical exam: Code(s): Z00.00 - Encounter for general adult medical examination without abnormal findings Plan: Repeat in a year. (2) Undifferentiated connective tissue disease: Code(s): M35.9 - Systemic involvement of connective tissue, unspecified Plan: Follow-up with rheumatology. Needs to see Ophthalmology before starting hydroxychloroquine. Medications: New semaglutide (weight loss) (Wegovy) administer weeks 1 through 4 of therapy 0.25 mg (0.5 mL) subcut QWEEK 30 days 2.5 mL 0RF cholecalciferol (vitamin D3) 50 mcg PO DAILY 90 days 90 caps 1RF Coding Level of Care Code Est Pt Prev Care 40-64y(24407) Diagnoses Physical exam Z00.00 Undifferentiated connective tissue disease M35.9 Time Spent (min) 30
== END 2023-11-06 17:57 | disposition home or self-care (01) ==
PROVIDERS: PCP Internal Medicine; Visit Provider Internal Medicine
DX: Z00.00 Encounter for general adult medical examination without abnormal findings (principal); M35.9 Systemic involvement of connective tissue, unspecified
CPT/HCPCS: 99396

== ENCOUNTER 2023-11-13 08:26 | Outpatient (AMB) | payer OTHER, SELFPAY ==
[2023-11-13 08:50] VITALS: BMI 38.2
--- NOTE | 2023-11-13 08:50 | MHC.OFFVIS ---
Intake Vital Signs 11/13/23 08:50 Height 5 ft 4 in Weight 222 lb 10.67 oz BMI 38.2 Intake Visit Reasons: AUB/DO NOT RS Legal Compliance Officer Required: Yes Legal Compliance Officer Language: Place Change Roof Bolter Name: Nishi WIGGINS Information Interpreted: non-clinical & clinical Appliance Service Representative: Appliance Service Representative Present (Nishi WIGGINS) Accompanied by: Self / Same As Patient Allergies tramadol [TRAMADOL] Allergy (Intermediate, Verified 11/13/23 08:57) DIZZY,N/V, nausea,dizziness, dizzy, nausea HPI HPI Comments History of Present Illness Details The patient is presenting c/o irregular bleeding associated with passage of blood clots and abdominal cramping. it started few months ago and is getting worse no other associated symptoms. Last co testing was in 10/16 was negative Last mammogram was BI-RADS 1 in 10/18 [facility] Medical History Anemia Undifferentiated connective tissue disease Abnormal antibody titer Spondylosis of lumbosacral spine with radiculopathy Trochanteric bursitis, right hip Bilateral hand pain Chronic pain of toes of both feet Raynaud phenomenon Dizziness Obese Left knee pain Surgical History Osteochondroma of left lower leg H/O carpal tunnel repair S/P ORIF (open reduction internal fixation) fracture History of gastrectomy History of tubal ligation History of appendectomy Family History Mother No problems noted. Father Diabetes mellitus Maternal Aunt Breast cancer Social History Housing: House Alcohol intake: current Alcohol intake frequency: holidays/special occasions only Alcohol type: hard liquor Patient Tobacco Use Status: Never used Tobacco e-Cigarette/Vaping Use: Never Used Second Hand Smoke Exposure: No service: No Current occupational status: unemployed Cognitive needs: No Hearing needs: No Vision needs: Yes Female Reproductive History Menstrual Age of Menarche: 13 Review of Systems Const All systems reviewed & are unremarkable except as noted in HPI and below Card Reports as per HPI Resp Reports as per HPI GI Reports as per HPI and Reports no additional complaints Reports as per HPI Physical Exam Vital Signs: BMI result Body Mass Index 38.2 Const General: cooperative, healthy appearing and comfortable Chest Chest palpation & inspection: normal inspection of the chest and normal palpation of entire chest wall Breast/axilla inspection: normal inspection of the breasts and normal inspection of the axillae Breast/axilla palpation: normal palpation of the breasts, normal palpation of the axillae and no axillary lymphadenopathy Resp Effort & Inspection: normal respiratory effort Auscultation: clear to auscultation bilaterally Percussion: percussion normal Cardio Palpation: normal PMI Rate: regular rate Rhythm: regular rhythm Heart sounds: no murmurs and no rubs Peripheral pulses: Peripheral pulses 2+ throughout GI Inspection: Yes normal to inspection Palpation (GI): Soft to palpation, nontender, no guarding, not rigid and No hepatosplenomegaly present Percussion: Yes normal to percussion Auscultation: normal bowel sounds Rectal Exam - Female: deferred General: Yes bladder normal to palpation External Female Exam: No lesion Speculum Exam - Vagina: normal appearance of the vagina, normal palpation, normal vaginal discharge and not erythematous Speculum Exam - Cervix: normal appearance of the cervix and normal palpation Bimanual exam- vagina & uterus: normal bimanual exam, normal palpation, uterine size normal, bladder normal to palpation, consistency normal and normal palpation Bimanual Exam- Adnexa, other: normal adnexae, no masses and no tenderness Assessment & Plan Assessment & Plan (1) Abnormal uterine bleeding: Comment: Raynaud's phenomena Code(s): N93.9 - Abnormal uterine and vaginal bleeding, unspecified Plan: GC and chlamydia taken CBC, prolactin, TSH, HCG, and pelvic ultrasound ordered. Discussed with the patient the different causes of abnormal bleeding including thyroid disorders, uterine and ovarian pathology, endometrial hyperplasia, carcinoma and other potential causes. Discussed with the patient the work up including CBC (to r/o anemia), TSH, prolactin, pelvic Ultrasound, endometrial biopsy to r/o endometrial pathology. All questions answered and the patient verbalized understanding. Instructed the patient to schedule an appointment for an endometrial biopsy in 2 weeks. Coding Level of Care Code Est Pt Level 3 (60090) Diagnoses Abnormal uterine bleeding N93.9
== END 2023-11-13 09:23 | disposition home or self-care (01) ==
PROVIDERS: PCP Internal Medicine; Visit Provider Obstetrics & Gynecology
DX: Z32.02 Encounter for pregnancy test, result negative (principal); N93.9 Abnormal uterine and vaginal bleeding, unspecified
CPT/HCPCS: 99213

== ENCOUNTER 2023-11-13 08:26 | Outpatient (REF) | payer OTHER, SELFPAY | END 2023-11-13 08:27 | disposition home or self-care (01) | LOC: HO.LNP 08:26 | PROVIDERS: PCP Internal Medicine; Visit Provider Obstetrics & Gynecology | DX: N93.9 Abnormal uterine and vaginal bleeding, unspecified (principal) | CPT/HCPCS: 81025; 99212 ==

== ENCOUNTER 2023-11-13 09:10 | Outpatient (REF) | payer OTHER, SELFPAY ==
[2023-11-13 13:34] LABS: CT PCR NOT DETECTED (Not Detect.); NG PCR NOT DETECTED (Not Detect.)
== END 2023-11-13 09:11 | disposition home or self-care (01) ==
LOC: HO.LAB 09:10
PROVIDERS: PCP Internal Medicine; Visit Provider Obstetrics & Gynecology
DX: N93.9 Abnormal uterine and vaginal bleeding, unspecified (principal)
CPT/HCPCS: 0353U

== ENCOUNTER 2023-11-21 10:43 | Outpatient (REF) | payer OTHER, SELFPAY ==
--- NOTE | ~2023-11-21 | US_ITS ---
EXAMINATION: US PELVIS CLINICAL INFORMATION: Abnormal uterine and vaginal bleeding, last menstrual period 10/23/2023. COMPARISON: CT abdomen pelvis 11/03/2017. TECHNIQUE: Ultrasound of the pelvis is performed using both transabdominal and transvaginal transducers along with Doppler. Transvaginal imaging is performed due to inadequate visualization transabdominally. FINDINGS: The uterus is anteverted and measures 8.5 x 5.3 x 6.0 cm. Endometrial thickness is 19 mm. No significant free fluid. Right ovary measures 3.7 x 1.6 x 2.1 cm, volume is 6.5 mL and is unremarkable. Left ovary measures 4.0 x 2.0 x 2.3 cm, volume 9.6 mL. Left ovarian 1.6 x 1.4 x 1.5 cm complex cyst with thick ge and thick septations, possibly a corpus luteum/hemorrhagic cyst. US/US pelvic and transvaginal IMPRESSION: 1. Echogenic endometrium with thickness of 19 mm. Correlation with clinical exam and gynecologic consultation recommended for this patient with abnormal bleeding. 2. Left ovarian 1.6 x 1.4 x 1.5 cm complex cyst with thick ge and thick septations, possibly a corpus luteum/hemorrhagic cyst. Recommend follow-up ultrasound in 6-8 weeks.
== END 2023-11-21 10:44 | disposition home or self-care (01) ==
LOC: HO.US 10:43
PROVIDERS: PCP Internal Medicine; Visit Provider Obstetrics & Gynecology
DX: N93.9 Abnormal uterine and vaginal bleeding, unspecified (principal)
CPT/HCPCS: 76830; 76856

== ENCOUNTER 2023-12-31 11:02 | Outpatient (AMB) | payer OTHER, SELFPAY ==
--- NOTE | 2023-12-31 11:18 | A.OFFVIS_ITS ---
Vital Signs 12/31/23 11:27 Height 5 ft 4 in Weight 222 lb 10.67 oz BMI 38.2 BP 120/76 Intake Visit Reasons: emb Sales Account Manager Required: Yes Sales Account Manager Language: Nepali Information Interpreted: non-clinical & clinical Amusement Park Ride Mechanic: Amusement Park Ride Mechanic Present (Nishi WIGGINS) Accompanied by: Self / Same As Patient Allergies tramadol [TRAMADOL] Allergy (Intermediate, Verified 12/31/23 11:28) DIZZY,N/V, nausea,dizziness, dizzy, nausea Is last menstrual period known: Yes Last menstrual period: 12/16/23 HPI Comments Details: Presenting for EMB [facility] Medical History Anemia Undifferentiated connective tissue disease Abnormal antibody titer Spondylosis of lumbosacral spine with radiculopathy Trochanteric bursitis, right hip Bilateral hand pain Chronic pain of toes of both feet Raynaud phenomenon Dizziness Obese Left knee pain Surgical History Osteochondroma of left lower leg H/O carpal tunnel repair S/P ORIF (open reduction internal fixation) fracture History of gastrectomy History of tubal ligation History of appendectomy Family History Mother No problems noted. Father Diabetes mellitus Maternal Aunt Breast cancer Social History Housing: House Alcohol intake: current Alcohol intake frequency: holidays/special occasions only Alcohol type: hard liquor Patient Tobacco Use Status: Never used Tobacco e-Cigarette/Vaping Use: Never Used Second Hand Smoke Exposure: No service: No Current occupational status: unemployed Cognitive needs: No Hearing needs: No Vision needs: Yes Female Reproductive History Menstrual Age of Menarche: 13 Date of last menstrual period: 12/16/23 control method: permanent sterilization Physical Exam Vital Signs: Last Vital Signs BP 120/76 12/31/23 11:27 BMI result Body Mass Index 38.2 Office Procedures Endometrial Biopsy Details: The patient was counseled regarding the indication and benefits of endometrial sampling to rule out endometrial pathology including not limited to endometrial hyperplasia or endometrial cancer and others; The alternatives (Either do nothing vs. hysteroscopy D&C) & the risks were discussed with the patient including but not limited: pain, uterine perforation, bleeding, infection, possible injury to bladder, bowel, ureter, possible need for blood transfusion with all its possible risks. The patient verbalized understanding all questions answered and signed consent. Urine test done in the office was negative The patient was placed into the dorsal lithotomy position; a speculum was inserted in the vagina. Using aseptic technique for the procedure, the cervix was cleansed with Betadine. The anterior lip of the cervix was grasped with a s zhou tooth tenaculum. The uterus was sounded to 7 cm with a 4 mm Pipelle was used. Tissues samples were obtained and placed in formalin, in a patient labeled container and sent to the pathology department. At the end of the procedure, there was minimal bleeding noted The patient tolerated the procedure well and was discharged in good condition with the following instructions: Nothing in the vagina until the bleeding stops. No sex until the bleeding stops, to call if any of the following occurs: fever (>100.4), flu-like symptoms, abdominal pain, heavy bleeding, four smelling vaginal discharge. The patient was instructed to schedule a Follow up appointment in 2 weeks to discuss pathology results of the biopsy and treatment options. This note was generated with a voice recognition program. Some errors may have been overlooked during the review of this note. Sometimes these errors may affect the content or meaning of a given sentence. [id number] Biopsy Results AMB Test Urine AMB Test Urine Negative Last Edit by Nishi Chakraborty CMA on 11:29 Results Reviewed Results Reviewed: Laboratory Last Values Tst Clinic Negative 12/31/23 11:29 Assessment & Plan Assessment & Plan (1) Abnormal uterine bleeding: Comment: Raynaud's phenomena Code(s): N93.9 - Abnormal uterine and vaginal bleeding, unspecified Category: Medical Plan: EMB done, see procedure note Orders: Orders AMB Endometrial Biopsy Today N93.9 - Abnormal uterine and vaginal bleeding, unspecified AMB HCG Urine Test Today Z32.02 - Encounter for test, result negative Coding Level of Care Code Procedure Only Diagnoses Abnormal uterine bleeding N93.9 CPT Codes Endometrial Biopsy - CPT: 41359-[id number] Biopsy ([id number])
[2023-12-31 11:27] VITALS: BP 120/76; BMI 38.2
== END 2023-12-31 11:38 | disposition home or self-care (01) ==
PROVIDERS: PCP Internal Medicine; Visit Provider Obstetrics & Gynecology
DX: N93.9 Abnormal uterine and vaginal bleeding, unspecified (principal); Z32.02 Encounter for pregnancy test, result negative
CPT/HCPCS: 58100

== ENCOUNTER 2023-12-31 11:02 | Outpatient (REF) | payer OTHER, SELFPAY | END 2023-12-31 11:03 | disposition home or self-care (01) | LOC: HO.LNP 11:02 | PROVIDERS: PCP Internal Medicine; Visit Provider Obstetrics & Gynecology | DX: N93.9 Abnormal uterine and vaginal bleeding, unspecified (principal) | CPT/HCPCS: 58100; 81025; 88305 ==

== ENCOUNTER 2024-01-07 12:26 | Outpatient (AMB) | payer OTHER, SELFPAY ==
--- NOTE | 2024-01-07 12:29 | MHC.PC.OV ---
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 Required: No Accompanied by: Daughter Allergies tramadol [TRAMADOL] Allergy (Intermediate, Verified 01/07/24 12:49) DIZZY,N/V, nausea,dizziness, dizzy, nausea Medication List - Last Reconciled 01/07/24 by Alee Melendez MD cetirizine (Allergy Relief (cetirizine)) 10 mg PO DAILY PRN 30 days cholecalciferol (vitamin D3) 50 mcg PO DAILY 90 days diclofenac sodium 1% (Voltaren Arthritis Pain) 2 grams topical BID ferrous sulfate 325 mg PO DAILY gabapentin 600 mg PO BID 30 days semaglutide (weight loss) (Wegovy) 0.5 mg (0.5 mL) subcut QWEEK 4 weeks Tobacco use date assessed: 10/22/23 Dental Screening Dental Screen Date: 10/22/23 HPI HPI Comments History of Present Illness Details This is a 43-year-old female with anemia, allergic rhinitis, undifferentiated connective tissue disease, obesity and low vitamin-D that comes today for follow-up on her conditions. On ferrous sulfate for her low hemoglobin. On antihistamines as needed for allergic rhinitis. Undifferentiated connective tissue disease is follow by Rheumatology and Ophthalmology visit is pending before starting hydroxychloroquine. She has obese with a BMI of 37.4 and has been on wegovy for about a month and a half and has lost a few lb with no side effects. I will increase it to 1 mg. On vitamin-D supplements for her low vitamin-D. She denies any chest pain or shortness on breath. Doing well. [facility] Medical History (Updated 01/07/24 @ 13:06 by Alee Melendez MD) Anemia Undifferentiated connective tissue disease Abnormal antibody titer Spondylosis of lumbosacral spine with radiculopathy Trochanteric bursitis, right hip Bilateral hand pain Chronic pain of toes of both feet Raynaud phenomenon Dizziness Obese Left knee pain Surgical History Osteochondroma of left lower leg H/O carpal tunnel repair S/P ORIF (open reduction internal fixation) fracture History of gastrectomy History of tubal ligation History of appendectomy Family History Mother No problems noted. Father Diabetes mellitus Maternal Aunt Breast cancer Social History Housing: House Alcohol intake: current Alcohol intake frequency: holidays/special occasions only Alcohol type: hard liquor Patient Tobacco Use Status: Never used Tobacco e-Cigarette/Vaping Use: Never Used Second Hand Smoke Exposure: No service: No Current occupational status: unemployed Cognitive needs: No Hearing needs: No Vision needs: Yes Female Reproductive History Menstrual Age of Menarche: 13 Questionnaire Thrive Questionnaire Date Thrive assessed: 10/22/23 SEBAS-7 AMB Questionnaire SEBAS-7 Date SEBAS - 7 assessed: 10/22/23 Source: Developed by Drs. Braulio Cloud, Sendy Ayala, Thiago Mills and colleagues, with an educational adam from [employer]. Review of Systems Const All systems reviewed & are unremarkable except as noted in HPI and below Eyes Reports no additional complaints, Denies change in vision and Denies other visual disturbances Card Denies chest pain at rest, Denies chest pain with activity, Denies edema, Denies irregular heart rhythm, Denies claudication, Denies dyspnea, Denies dyspnea on exertion, Denies orthopnea, Denies paroxysmal nocturnal dyspnea and Denies slow heart rate Resp Denies cough, Denies dyspnea and Denies dyspnea on exertion Physical exam (Primary Care) Vital Signs: Last Vital Signs BP 120/70 01/07/24 12:30 BMI result Body Mass Index 37.4 Tobacco/Smoking Status: Tobacco use Status Tobacco use date assessed 10/22/23 01/07/24 12:33 Patient Tobacco Use Status Never used Tobacco 01/07/24 12:33 e-Cigarette/Vaping Use Never Used 01/07/24 12:33 Thrive Assessment: Date of Thrive Assessment Date Thrive assessed 10/22/23 01/07/24 12:33 Resp Effort & Inspection: normal respiratory effort Auscultation: clear to auscultation bilaterally Cardio Jugular venous distension: no JVD Rate: regular rate Rhythm: regular rhythm Heart sounds: S1 normal heart sound present and S2 normal heart sound present Extrem General: Yes full ROM Assessment and Plan Assessment & Plan (1) Anemia: Code(s): D64.9 - Anemia, unspecified Qualifiers: Anemia type: iron deficiency Iron deficiency anemia type: chronic blood loss Qualified Code(s): D50.0 - Iron deficiency anemia secondary to blood loss (chronic) Plan: Continue ferrous sulfate. (2) Class 2 obesity with body mass index (BMI) of 37.0 to 37.9 in adult: Code(s): E66.9 - Obesity, unspecified; Z68.37 - Body mass index [BMI] 37.0-37.9, adult Qualifiers: Obesity type: due to excess calories Serious obesity comorbidity presence: without serious comorbidity Qualified Code(s): E66.09 - Other obesity due to excess calories; Z68.37 - Body mass index [BMI] 37.0-37.9, adult Plan: Start diet and exercise. Increase Wegovy to mg. BMI goal is less than 30. (3) Undifferentiated connective tissue disease: Code(s): M35.9 - Systemic involvement of connective tissue, unspecified Plan: Follow-up with rheumatology. (4) Allergic rhinitis: Code(s): J30.9 - Allergic rhinitis, unspecified Qualifiers: Allergic rhinitis trigger: pollen Allergic rhinitis seasonality: seasonal Qualified Code(s): J30.1 - Allergic rhinitis due to pollen Plan: Continue antihistamines as needed. (5) Hypovitaminosis D: Code(s): E55.9 - Vitamin D deficiency, unspecified Plan: Continue vitamin-D supplements. Medications: New semaglutide (weight loss) (Wegovy) 1 mg (0.5 mL) subcut Q7D 4 weeks 2 mL 0RF Discontinued semaglutide (weight loss) (Wegovy) administer weeks 5 through 8 of therapy Discontinued Reason: Patient Completed Course 0.5 mg (0.5 mL) subcut QWEEK 4 weeks 2 mL 0RF Coding Level of Care Code Est Pt Level 4 (69739) Complex EM visit Add On G2211 Diagnoses Iron deficiency anemia due to chronic blood loss D50.0 Anemia type: iron deficiency Iron deficiency anemia type: chronic blood loss Class 2 obesity due to excess calories without serious comorbidity with body mass index (BMI) of 37.0 to 37.9 in adult E66.09; Z68.37 Obesity type: due to excess calories Serious obesity comorbidity presence: without serious comorbidity Undifferentiated connective tissue disease M35.9 Seasonal allergic rhinitis due to pollen J30.1 Allergic rhinitis trigger: pollen Allergic rhinitis seasonality: seasonal Hypovitaminosis D E55.9 Time Spent (min) 21
[2024-01-07 12:30] VITALS: BP 120/70; BMI 37.4
== END 2024-01-07 12:59 | disposition home or self-care (01) ==
PROVIDERS: PCP Internal Medicine; Visit Provider Internal Medicine
DX: D50.0 Iron deficiency anemia secondary to blood loss (chronic) (principal); E66.09 Other obesity due to excess calories; Z68.37 Body mass index [BMI] 37.0-37.9, adult; M35.9 Systemic involvement of connective tissue, unspecified; J30.1 Allergic rhinitis due to pollen; E55.9 Vitamin D deficiency, unspecified
CPT/HCPCS: 99214; G2211

== ENCOUNTER 2024-02-09 09:54 | Outpatient (REF) | payer OTHER, SELFPAY ==
[2024-02-09 11:38] LABS: Hematocrit 32.8 % (37.0-47.0); Hemoglobin 10.2 g/dl (12.0-16.0); Mean Corpuscular HGB Conc 31.1 g/dl (31.0-35.0); Mean Corpuscular Hemoglobin 22.8 pg (27.0-33.0); Mean Corpuscular Volume 73.2 fL (80.0-98.0); Mean Platelet Volume 10.9 fL (9.4-12.3); Platelet Count 221 X10*3/uL (160-400); Red Blood Count 4.48 X10*6/uL (4.20-5.50); Red Cell Distribution Width 18.6 % (11.0-16.0); White Blood Count 5.3 X10*3/uL (4.8-10.8)
[2024-02-09 12:31] LABS: HCG Quantitative < 2 mIU/mL; TSH reflex Free T4 1.67 uIU/mL (0.32-4.0)
== END 2024-02-09 09:55 | disposition home or self-care (01) ==
LOC: HO.LAB 09:54
PROVIDERS: PCP Internal Medicine; Visit Provider Obstetrics & Gynecology
DX: N93.9 Abnormal uterine and vaginal bleeding, unspecified (principal); N83.299 Other ovarian cyst, unspecified side
CPT/HCPCS: 36415; 84146; 84443; 84702; 85027; 99212

== ENCOUNTER 2024-02-09 09:54 | Outpatient (AMB) | payer OTHER, SELFPAY ==
--- NOTE | 2024-02-09 10:08 | A.OFFVIS_ITS ---
Vital Signs 02/09/24 10:11 Height 5 ft 4 in Weight 216 lb 0.848 oz BMI 37.1 BP 122/74 Intake Visit Reasons: emb and ultra sound results Narrative Writer Required: Yes Narrative Writer Language: Block Trader Services: Narrative Writer Present (in person) Narrative Writer Name: Nishi WIGGINS Information Interpreted: non-clinical & clinical Accompanied by: Self / Same As Patient Allergies tramadol [TRAMADOL] Allergy (Intermediate, Verified 02/09/24 10:12) DIZZY,N/V, nausea,dizziness, dizzy, nausea Is last menstrual period known: Yes Last menstrual period: 01/16/24 HPI Comments Details: The patient is presenting for follow-up to discuss the results of her abnormal uterine bleeding workup and options of treatment. The following workup was done.: H&H, TSH, prolactin hCG were not done yet GC and chlamydia were negative. Endometrial biopsy pathology showed proliferative endometrium with no evidence of hyperplasia and/or malignancy. Co testing was done in 02/13 was negative. Mammogram was done in 10/18 was BI-RADS 1. Pelvic ultrasound showed the following: The uterus is anteverted and measures 8.5 x 5.3 x 6.0 cm. Endometrial thickness is 19 mm. No significant free fluid. Right ovary measures 3.7 x 1.6 x 2.1 cm, volume is 6.5 mL and is unremarkable. Left ovary measures 4.0 x 2.0 x 2.3 cm, volume 9.6 mL. Left ovarian 1.6 x 1.4 x 1.5 cm complex cyst with thick ge and thick septations, possibly a corpus luteum/hemorrhagic cyst. [facility] Medical History Anemia Undifferentiated connective tissue disease Abnormal antibody titer Spondylosis of lumbosacral spine with radiculopathy Trochanteric bursitis, right hip Bilateral hand pain Chronic pain of toes of both feet Raynaud phenomenon Dizziness Obese Left knee pain Surgical History Osteochondroma of left lower leg H/O carpal tunnel repair S/P ORIF (open reduction internal fixation) fracture History of gastrectomy History of tubal ligation History of appendectomy Family History Mother No problems noted. Father Diabetes mellitus Maternal Aunt Breast cancer Social History Housing: House Alcohol intake: current Alcohol intake frequency: holidays/special occasions only Alcohol type: hard liquor Patient Tobacco Use Status: Never used Tobacco e-Cigarette/Vaping Use: Never Used Second Hand Smoke Exposure: No service: No Current occupational status: unemployed Cognitive needs: No Hearing needs: No Vision needs: Yes Female Reproductive History Menstrual Age of Menarche: 13 Date of last menstrual period: 01/16/24 control method: permanent sterilization Review of Systems Const All systems reviewed & are unremarkable except as noted in HPI and below Reports as per HPI and Reports no additional complaints GI Reports no additional complaints Reports no additional complaints Physical Exam Vital Signs: Last Vital Signs BP 122/74 02/09/24 10:11 BMI result Body Mass Index 37.1 Assessment & Plan Assessment & Plan (1) Abnormal uterine bleeding: Comment: Raynaud's phenomena Code(s): N93.9 - Abnormal uterine and vaginal bleeding, unspecified Category: Medical Plan: Instructions given the patient to have her blood work done felicia and to continue iron sulfate 325 mg p.o. q.d. Discussed with the patient the results of the work up done and options of treatment including (Lysteda, BCP's are contraindicated in patients with Raynaud's phenomena_Mirena IUD, endometrial ablation and hysterectomy. All pros, cons, risks and benefits if each option was discussed with the patient and the patient decided to think about it and get back to us. Instructions given the patient to schedule a 2 week follow-up appointment . All questions answered the patient verbalized understanding. (2) Complex ovarian cyst: Code(s): N83.299 - Other ovarian cyst, unspecified side Category: Medical Plan: Discussed with the patient the complex ovarian cyst by ultrasound. Discussed with the patient the Ultrasound findings, the main limitation of transvaginal ultrasonography alone as a diagnostic tool to distinguish benign from malignant masses relates to its lack of specificity and low positive predictive value for cancer. The differential diagnosis discussed with the patient includes the following but not limited to: benign and malignant gynecological and non-gynecological causes. Laboratory evaluation include UPT and GC/CT , serum tumor marker CA 125 . Will repeat ultrasound since last ultrasound was done in 11/19/2023, instructions given the patient to schedule a pelvic ultrasound and a follow-up appointment within 1-2 weeks, order placed. All questions were answered & the patient verbalized understanding and agreed with the plan. Orders: Orders US pelvic and transvaginal Today N83.299 - Other ovarian cyst, unspecified side US pelvic and transvaginal Today N93.9 - Abnormal uterine and vaginal bleeding, unspecified Coding Level of Care Code Est Pt Level 3 (21240) Diagnoses Abnormal uterine bleeding N93.9 Complex ovarian cyst N83.299
[2024-02-09 10:11] VITALS: BP 122/74; BMI 37.1
== END 2024-02-09 11:21 | disposition home or self-care (01) ==
PROVIDERS: PCP Internal Medicine; Visit Provider Obstetrics & Gynecology
DX: N93.9 Abnormal uterine and vaginal bleeding, unspecified (principal); N83.299 Other ovarian cyst, unspecified side
CPT/HCPCS: 99213

== ENCOUNTER 2024-03-01 11:10 | Outpatient (REF) | payer OTHER, SELFPAY ==
--- NOTE | ~2024-03-01 | US_ITS ---
EXAMINATION: US PELVIS CLINICAL INFORMATION: Normal bleeding, last menstrual period 02/13/2024. COMPARISON: 11/21/2023. TECHNIQUE: Ultrasound of the pelvis is performed using both transabdominal and transvaginal transducers along with Doppler. Transvaginal imaging is performed due to inadequate visualization transabdominally. FINDINGS: The uterus is retroverted and measures 9.1 x 5.0 x 5.1 cm. Endometrial thickness is 12 mm. Possible 1.4 x 0.6 x 0.6 cm endometrial polyp. Moderate amount of free fluid adjacent to the uterine fundus and bilateral adnexal regions. Right ovary measures 4.9 x 2.0 x 2.7 cm, volume 13.9 mL. Right ovarian 0.9 x 0.8 x 0.6 cm echogenic mass was not appreciated on the exam of 11/21/2023. Right ovarian 2.6 x 1.6 x 1.8 cm complex cyst with septations and low level internal echoes, possibly a hemorrhagic cyst. Left ovary measures 3.8 x 1.8 x 2.3 cm, volume 8.2 mL. Left ovarian 1.2 cm cyst with daughter cyst, likely physiologic. US/US pelvic and transvaginal IMPRESSION: 1. Possible 1.4 cm endometrial polyp. 2. Right ovarian 0.9 cm echogenic mass and 2.6 cm complex cyst were not appreciated on the prior exam. 3. Moderate amount of free fluid in the pelvis. 4. Recommend follow up ultrasound in 4 to 6 weeks. 5. Recommend gynecologic consultation to determine further management.
== END 2024-03-01 11:11 | disposition home or self-care (01) ==
LOC: HO.US 11:10
PROVIDERS: PCP Internal Medicine; Visit Provider Obstetrics & Gynecology
DX: N93.9 Abnormal uterine and vaginal bleeding, unspecified (principal)
CPT/HCPCS: 76830; 76856

== ENCOUNTER 2024-03-08 14:40 | Outpatient (AMB) | payer OTHER, SELFPAY ==
--- NOTE | 2024-03-08 14:51 | MHC.PC.OV ---
Vital Signs 03/08/24 14:52 Height 5 ft 4 in Weight 211 lb BMI 36.2 BP 118/80 Blood Pressure Location Rt brachial Position Sitting Intake Visit Reasons: sciatica Intake Note: Patient here for follow up sciatica, weight, ? restless leg syndrome Hot Plate Plywood Press Offbearer Required: No Accompanied by: Self / Same As Patient Allergies tramadol [TRAMADOL] Allergy (Intermediate, Verified 03/08/24 15:12) DIZZY,N/V, nausea,dizziness, dizzy, nausea Medication List - Last Reconciled 03/08/24 by Alee Melendez MD cetirizine (Allergy Relief (cetirizine)) 10 mg PO DAILY PRN 30 days cholecalciferol (vitamin D3) 50 mcg PO DAILY 90 days diclofenac sodium 1% (Voltaren Arthritis Pain) 2 grams topical BID ferrous sulfate 325 mg PO DAILY gabapentin 600 mg PO BID 30 days semaglutide (weight loss) (Wegovy) 1.7 mg (0.75 mL) subcut QWEEK 4 weeks Tobacco use date assessed: 10/22/23 Dental Screening Dental Screen Date: 10/22/23 HPI HPI Comments History of Present Illness Details This is a 43-year-old female with allergic rhinitis and undifferentiated connective tissue disease that complains of restless leg syndrome that is more prominent at bedtime. I will start her on ropinirole. She also has iron-deficiency anemia on ferrous sulfate and hemoglobin will be monitor. Allergic rhinitis stable with antihistamines. Will be referred to rheumatology for her undifferentiated connective tissue disease. [facility] Medical History (Updated 03/08/24 @ 15:25 by Alee Melendez MD) Anemia Undifferentiated connective tissue disease Abnormal antibody titer Spondylosis of lumbosacral spine with radiculopathy Trochanteric bursitis, right hip Bilateral hand pain Chronic pain of toes of both feet Raynaud phenomenon Dizziness Obese Left knee pain Surgical History Osteochondroma of left lower leg H/O carpal tunnel repair S/P ORIF (open reduction internal fixation) fracture History of gastrectomy History of tubal ligation History of appendectomy Family History Mother No problems noted. Father Diabetes mellitus Maternal Aunt Breast cancer Social History Housing: House Alcohol intake: current Alcohol intake frequency: holidays/special occasions only Alcohol type: hard liquor Patient Tobacco Use Status: Never used Tobacco e-Cigarette/Vaping Use: Never Used Second Hand Smoke Exposure: No service: No Current occupational status: unemployed Cognitive needs: No Hearing needs: No Vision needs: Yes Female Reproductive History Menstrual Age of Menarche: 13 Questionnaire Thrive Questionnaire Date Thrive assessed: 10/22/23 SEBAS-7 AMB Questionnaire SEBAS-7 Date SEBAS - 7 assessed: 10/22/23 Source: Developed by Drs. Braulio Cloud, Sendy Ayala, Thiago Mills and colleagues, with an educational adam from [employer]. Review of Systems Const All systems reviewed & are unremarkable except as noted in HPI and below Card Denies chest pain at rest, Denies chest pain with activity, Denies edema, Denies irregular heart rhythm, Denies claudication, Denies dyspnea, Denies dyspnea on exertion, Denies orthopnea, Denies paroxysmal nocturnal dyspnea and Denies slow heart rate Resp Denies cough, Denies dyspnea and Denies dyspnea on exertion GI Denies abdominal pain, Denies change in bowel habits, Denies excessive flatus, Denies nausea and Denies vomiting Denies urinary incontinence, Denies urinary hesitancy and Denies urinary urgency Musc Denies atrophy, Denies deformity and Denies limited range of motion Physical exam (Primary Care) Vital Signs: Last Vital Signs BP 118/80 03/08/24 14:52 BMI result Body Mass Index 36.2 BMI Assessment/Plan discussion: High BMI High, discussed plan: lifestyle, weight reduction, dietary and physical activity Tobacco/Smoking Status: Tobacco use Status Tobacco use date assessed 10/22/23 03/08/24 14:55 Patient Tobacco Use Status Never used Tobacco 03/08/24 14:55 e-Cigarette/Vaping Use Never Used 03/08/24 14:55 Thrive Assessment: Date of Thrive Assessment Date Thrive assessed 10/22/23 03/08/24 14:55 Resp Effort & Inspection: normal respiratory effort Auscultation: clear to auscultation bilaterally Cardio Jugular venous distension: no JVD Rate: regular rate Rhythm: regular rhythm Heart sounds: S1 normal heart sound present and S2 normal heart sound present Extrem General: Yes full ROM Assessment and Plan Assessment & Plan (1) Restless leg syndrome: Code(s): G25.81 - Restless legs syndrome Plan: Start ropinirole. (2) Undifferentiated connective tissue disease: Code(s): M35.9 - Systemic involvement of connective tissue, unspecified Plan: Referred to rheumatology. (3) Allergic rhinitis: Code(s): J30.9 - Allergic rhinitis, unspecified Qualifiers: Allergic rhinitis trigger: pollen Allergic rhinitis seasonality: seasonal Qualified Code(s): J30.1 - Allergic rhinitis due to pollen Plan: Continue antihistamines as needed. (4) Anemia: Code(s): D64.9 - Anemia, unspecified Qualifiers: Anemia type: iron deficiency Iron deficiency anemia type: chronic blood loss Qualified Code(s): D50.0 - Iron deficiency anemia secondary to blood loss (chronic) Plan: Continue ferrous sulfate. Orders: Referrals Rheumatology Referral M35.9 - Systemic involvement of connective tissue, unspecified, M51.36 - Other intervertebral disc degeneration, lumbar region Medications: New ropinirole administer 1-3 hours before bedtime 0.25 mg PO BEDTIME 90 days 90 tabs 0RF semaglutide (weight loss) (Wegovy) 2.4 mg (0.75 mL) subcut QWEEK 4 weeks 3 mL 0RF Refilled gabapentin 600 mg PO BID 30 days 60 tabs 6RF Discontinued semaglutide (weight loss) (Wegovy) administer weeks 13 through 16 of therapy Discontinued Reason: Patient Completed Course 1.7 mg (0.75 mL) subcut QWEEK 4 weeks 3 mL 0RF Coding Level of Care Code Est Pt Level 4 (54514) Complex EM visit Add On G2211 Diagnoses Restless leg syndrome G25.81 Undifferentiated connective tissue disease M35.9 Seasonal allergic rhinitis due to pollen J30.1 Allergic rhinitis trigger: pollen Allergic rhinitis seasonality: seasonal Iron deficiency anemia due to chronic blood loss D50.0 Anemia type: iron deficiency Iron deficiency anemia type: chronic blood loss Time Spent (min) 23
[2024-03-08 14:52] VITALS: BP 118/80; BMI 36.2
== END 2024-03-08 15:19 | disposition home or self-care (01) ==
PROVIDERS: PCP Internal Medicine; Visit Provider Internal Medicine
DX: G25.81 Restless legs syndrome (principal); M35.9 Systemic involvement of connective tissue, unspecified; J30.1 Allergic rhinitis due to pollen; D50.0 Iron deficiency anemia secondary to blood loss (chronic)
CPT/HCPCS: 99214; G2211

== ENCOUNTER 2024-03-09 14:23 | Outpatient (REF) | payer OTHER, SELFPAY ==
[2024-03-09 16:41] LABS: Blood Urea Nitrogen 13 mg/dL (9-16); Estimated Glomerular Filt Rate > 60
== END 2024-03-09 14:24 | disposition home or self-care (01) ==
LOC: HO.LAB 14:23
PROVIDERS: PCP Internal Medicine; Visit Provider Obstetrics & Gynecology
DX: Z01.812 Encounter for preprocedural laboratory examination (principal); N83.299 Other ovarian cyst, unspecified side; N84.0 Polyp of corpus uteri; N93.9 Abnormal uterine and vaginal bleeding, unspecified
CPT/HCPCS: 36415; 82565; 84520; 99212

== ENCOUNTER 2024-04-19 07:45 | Outpatient (AMB) | payer OTHER, SELFPAY ==
--- NOTE | 2024-04-19 07:45 | MHC.OFFVIS ---
Vital Signs 04/19/24 07:46 Height 5 ft 4 in Weight 209 lb 7.026 oz BMI 35.9 Intake Visit Reasons: US/MRI follow up results Nut Processing Supervisor Required: Yes Nut Processing Supervisor Language: Electrician Marine Services: Nut Processing Supervisor Present (in person) Nut Processing Supervisor Name: Nishi WIGGINS Information Interpreted: non-clinical & clinical Accompanied by: Spouse Allergies tramadol [TRAMADOL] Allergy (Intermediate, Verified 04/19/24 07:47) DIZZY,N/V, nausea,dizziness, dizzy, nausea HPI Comments Details: Presenting for pelvic MRI follow-up Pelvic ultrasound done on 03/10/2024 showed the following: IMPRESSION: 1. Possible 1.4 cm endometrial polyp. 2. Right ovarian 0.9 cm echogenic mass and 2.6 cm complex cyst were not appreciated on the prior exam. 3. Moderate amount of free fluid in the pelvis. 4. Recommend follow up ultrasound in 4 to 6 weeks. 5. Recommend gynecologic consultation to determine further management. Pelvic MRI followed showed bilateral physiological ovarian cyst and normal endometrium/uterine The following AUB workup was done.: H&H= 10.2/32.8 TSH, hCG, GC and chlamydia were negative. Endometrial biopsy pathology showed proliferative endometrium with no evidence of hyperplasia and/or malignancy. Co testing was done in 02/15 was negative. Mammogram was done in 10/18 was BI-RADS 1 [facility] Medical History Anemia Undifferentiated connective tissue disease Abnormal antibody titer Spondylosis of lumbosacral spine with radiculopathy Trochanteric bursitis, right hip Bilateral hand pain Chronic pain of toes of both feet Raynaud phenomenon Dizziness Obese Left knee pain Surgical History Osteochondroma of left lower leg H/O carpal tunnel repair S/P ORIF (open reduction internal fixation) fracture History of gastrectomy History of tubal ligation History of appendectomy Family History Mother No problems noted. Father Diabetes mellitus Maternal Aunt Breast cancer Social History Housing: House Alcohol intake: current Alcohol intake frequency: holidays/special occasions only Alcohol type: hard liquor Patient Tobacco Use Status: Never used Tobacco e-Cigarette/Vaping Use: Never Used Second Hand Smoke Exposure: No service: No Current occupational status: unemployed Cognitive needs: No Hearing needs: No Vision needs: Yes Female Reproductive History Menstrual Age of Menarche: 13 Review of Systems Const All systems reviewed & are unremarkable except as noted in HPI and below Reports as per HPI and Reports no additional complaints GI Reports no additional complaints Reports no additional complaints Physical Exam Vital Signs: BMI result Body Mass Index 35.9 Assessment & Plan Assessment & Plan (1) Complex ovarian cyst: Code(s): N83.299 - Other ovarian cyst, unspecified side Category: Medical Plan: Discussed with the patient the results the MRI showing normal bilateral appearance of bilateral ovaries and endometrium/uterus. (2) Abnormal uterine bleeding: Comment: Raynaud's phenomena Anemia Code(s): N93.9 - Abnormal uterine and vaginal bleeding, unspecified Category: Medical Plan: Iron sulfate 325 mg p.o. q.d.. Discussed with the patient the results of the work up done and options of treatment including Lysteda, BCP's, Mirena IUD, endometrial ablation and hysterectomy. All pros, cons, risks and benefits if each option was discussed with the patient and the patient decided to think about it and get back to us. All questions answered the patient verbalized understanding. (3) Endometrial polyp: Code(s): N84.0 - Polyp of corpus uteri Category: Medical Plan: Discussed with the patient the finding on ultrasound and followed by pelvic MRI showing normal endometrium with no evidence of endometrial polyp. All questions answered, the patient verbalized understanding Coding Level of Care Code Est Pt Level 3 (26690) Diagnoses Complex ovarian cyst N83.299 Abnormal uterine bleeding N93.9 Endometrial polyp N84.0
[2024-04-19 07:46] VITALS: BMI 35.9
== END 2024-04-19 08:24 | disposition home or self-care (01) ==
LOC: HO.HWS 07:45
PROVIDERS: PCP Internal Medicine; Visit Provider Obstetrics & Gynecology
DX: N83.299 Other ovarian cyst, unspecified side (principal); N93.9 Abnormal uterine and vaginal bleeding, unspecified; N84.0 Polyp of corpus uteri
CPT/HCPCS: 99213

== ENCOUNTER → 2024-04-19 07:45 | Outpatient (BNVA) | payer OTHER, SELFPAY | PROVIDERS: PCP Internal Medicine; Visit Provider Obstetrics & Gynecology | DX: N83.291 Other ovarian cyst, right side (principal); N93.9 Abnormal uterine and vaginal bleeding, unspecified; N84.0 Polyp of corpus uteri | CPT/HCPCS: 99212 ==

== ENCOUNTER 2024-11-02 15:28 | Outpatient (REF) | payer OTHER, SELFPAY | END 2024-11-02 15:29 | disposition home or self-care (01) | LOC: HO.MAMMO 15:28 | PROVIDERS: PCP Internal Medicine; Visit Provider Internal Medicine | DX: Z12.31 Encounter for screening mammogram for malignant neoplasm of breast (principal) | CPT/HCPCS: 77063; 77067 ==

== ENCOUNTER → 2024-11-02 15:45 | Outpatient (BNV) | payer OTHER, SELFPAY | PROVIDERS: PCP Internal Medicine; Visit Provider Internal Medicine | DX: Z12.31 Encounter for screening mammogram for malignant neoplasm of breast (principal) | CPT/HCPCS: 77063; 77067 ==

== ENCOUNTER 2024-11-10 13:58 | Outpatient (AMB) | payer OTHER, SELFPAY ==
--- NOTE | 2024-11-10 14:09 | MHC.PC.OV ---
Vital Signs 11/10/24 14:11 Height 5 ft 4 in Weight 200 lb BMI 34.3 BP 130/82 Blood Pressure Location Rt brachial Position Sitting Intake Visit Reasons: Annual Exam Intake Note: Patient here for a physical exam Nursing Program Manager Required: No Accompanied by: Self / Same As Patient Allergies tramadol [TRAMADOL] Allergy (Intermediate, Verified 11/10/24 14:38) DIZZY,N/V, nausea,dizziness, dizzy, nausea Medication List - Last Reconciled 11/10/24 by Alee Melendez MD diclofenac sodium 1% (Voltaren Arthritis Pain) 2 grams topical BID ferrous sulfate 325 mg PO DAILY gabapentin 600 mg PO BID 30 days ropinirole 0.25 mg PO BEDTIME 90 days tirzepatide (weight loss) (Zepbound) 2.5 mg (0.5 mL) subcut QWEEK 4 weeks Tobacco use date assessed: 11/10/24 Dental Screening Dental Screen Date: 11/10/24 Did you have a dental visit in the last 12 months?: Yes Did you have a dental problem in the last 6 months where you did not have access to dental care?: No Was dental information given to patient?: Patient has dentist HPI HPI Comments History of Present Illness Details The patient is a 44-year-old female presenting for her physical exam. Migraines have been problematic, highlighted by a recent severe episode distinct from her typical premenstrual migraines. She explores pharmacological interventions to mitigate these episodes. Will order MRI of the brain and start her on Topamax for migraine prophylaxis. 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 Efforts in weight management require further support, particularly following surgical intervention, yet depression overlay complicates motivation and adherence. Her mild major depression has PHQ-9 of 5 and I will refer her to counseling and start her on bupropion. She has class 1 obesity with a BMI of 34.3 and used to be on Wegovy and Zepbound with great results. Has not had GLP 1 agonist in over 3 months. She was advised to follow a low-calorie diet and increase physical activity. The patient does not have a smoking history and moderately consumes alcohol. Despite challenges, she maintains informed vigilance over pharmaceutical adjustments and expresses readiness for revisiting medication efficacy, especially with depression treatment and migraine prophylaxis, weighing the benefits against potential costs and insurance navigation. - Reviewed tetanus vaccination status; potential booster if unavailable. - Recent mammography results were normal; previous Pap smear in 2021 showed negative HPV. - Discussed weight management strategies, including diet and physical activity recommendations. - Encouraged cardiovascular activity 30 minutes five days a week. - Discussed the importance of iron supplementation and regular hemoglobin laboratory checks. - Psychotherapy or counseling support considered for depression management. - Referral for rheumatology for arthritis assessment. [facility] Medical History (Updated 11/10/24 @ 14:56 by Alee Melendez MD) Anemia Undifferentiated connective tissue disease Abnormal antibody titer Spondylosis of lumbosacral spine with radiculopathy Trochanteric bursitis, right hip Bilateral hand pain Chronic pain of toes of both feet Raynaud phenomenon Dizziness Obese Left knee pain Surgical History Osteochondroma of left lower leg H/O carpal tunnel repair S/P ORIF (open reduction internal fixation) fracture History of gastrectomy History of tubal ligation History of appendectomy Family History Mother No problems noted. Father Diabetes mellitus Maternal Aunt Breast cancer Social History Housing: House Alcohol intake: current Alcohol intake frequency: holidays/special occasions only Alcohol type: hard liquor Patient Tobacco Use Status: Never used Tobacco e-Cigarette/Vaping Use: Never Used Second Hand Smoke Exposure: No service: No Current occupational status: unemployed Cognitive needs: No Hearing needs: No Vision needs: Yes Female Reproductive History Menstrual Age of Menarche: 13 Questionnaire PHQ-9 Over the last 2 weeks, how often have you been bothered by any of the following problems? 1. Little interest or pleasure in doing things: several days 2. Feeling down, depressed, or hopeless: several days 3. Trouble falling or staying asleep, or sleeping too much: several days 4. Feeling tired or having little energy: several days 5. Poor appetite or overeating: not at all 6. Feeling bad about yourself - or that you are a failure or have let yourself or your family down: several days 7. Trouble concentrating on things, such as reading the newspaper or watching television: not at all 8. Moving or speaking so slowly that other people could have noticed. Or the opposite - being so fidgety or restless that you have been moving around a lot more than usual: not at all 9. Thoughts that you would be better off or of hurting yourself in some way: not at all Total score: 5 Depression Screening Interpretation: Positive Depression Screening Follow-up: Existing condition, In treatment and Follow-up Visit Requested Depression Screening Done: Yes 71367 - PHQ-9 Billing: Yes Source: Developed by Drs. Braulio Cloud, Sendy Ayala, Thiago Mills and colleagues, with an educational adam from [employer]. Thrive Questionnaire Date Thrive assessed: 11/10/24 I am a: Patient What is your living situation today?: I have a steady place to live Within the past 12 months, did the food you bought not last and you didn't have the money to get more?: I choose not to answer this question Within the past 12 months, did you worry whether your food would run out before you got money to buy more?: Never true Do you have trouble paying for medicines?: No Do you have trouble getting transportation to medical appointments?: No Do you have trouble paying your heating and electricity bill?: No Do you have trouble taking care of your child, family member or friend?: No Do you have trouble with day-to-day activities such as bathing, preparing meals, shopping, managing finances, etc.?: Yes Are you currently unemployed and looking for a job?: Yes Are you interested in more education?: I choose not to answer this question Please select the resources that you would like help with: None Currently or been in a relationship where the following occur: No concerns reported THRIVE Score: 0 AUDIT C Alcohol Use Questionnaire (AUDIT-C) 1. How often do you have a drink containing alcohol?: 2-4 times a month 2. How many drinks containing alcohol do you have on a typical day when you are drinking?: 1 or 2 3. How often do you have six or more drinks on one occasion?: Never Total Score: 2 Score Reviewed/Action Taken: No SEBAS-7 AMB Questionnaire SEBAS-7 Date SEBAS - 7 assessed: 11/10/24 Feeling nervous, anxious, or on edge: 1 = Several days Not being able to stop or control worryin = Several days Worrying too much about different things: 1 = Several days Trouble relaxin = Several days Being so restless that it is hard to sit still: 1 = Several days Becoming easily annoyed or irritable: 1 = Several days Feeling afraid as if something awful might happen: 0 = Not at all Total SEBAS-7 score (0-4 normal; 5-9 mild; 10-14 moderate; 15-21 severe): 6 Source: Developed by Drs. Braulio Cloud, Sendy Ayala, Thiago Mills and colleagues, with an educational adma from [employer]. SEBAS-7 Assessment Billing SEBAS-7 Assessment Tool: SEBAS-7 Assessment 83738 Review of Systems Const All systems reviewed & are unremarkable except as noted in HPI and below Card Denies chest pain at rest, Denies chest pain with activity, Denies edema, Denies irregular heart rhythm, Denies claudication, Denies dyspnea, Denies dyspnea on exertion, Denies orthopnea, Denies paroxysmal nocturnal dyspnea and Denies slow heart rate Resp Denies cough, Denies dyspnea and Denies dyspnea on exertion GI Denies abdominal pain, Denies change in bowel habits, Denies excessive flatus, Denies nausea and Denies vomiting Physical exam (Primary Care) Vital Signs: Last Vital Signs BP 130/82 11/10/24 14:11 BMI result Body Mass Index 34.3 BMI Assessment/Plan discussion: High BMI High, discussed plan: lifestyle, weight reduction, dietary and physical activity Tobacco/Smoking Status: Tobacco use Status Tobacco use date assessed 11/10/24 11/10/24 14:17 Patient Tobacco Use Status Never used Tobacco 11/10/24 14:17 e-Cigarette/Vaping Use Never Used 11/10/24 14:17 PHQ-9: PHQ-9 Score PHQ-9: Total score 5 11/10/24 14:17 Depression Screening Interpretation: Positive Depression Screening Follow-up: Existing condition, In treatment and Follow-up Visit Requested Thrive Assessment: Date of Thrive Assessment Date Thrive assessed 11/10/24 11/10/24 14:17 Currently or been in a relationship where the following occur: No concerns reported HENMT Head: Yes normal to inspection, Yes normocephalic and Yes atraumatic Ears: external ears normal Eyes General: appearance normal, both eyes and all related structures Eyelids: Yes eyelids normal Conjunctivae: conjunctivae normal Neck Neck: Yes normal visual inspection and Yes supple Resp Effort & Inspection: normal respiratory effort Auscultation: clear to auscultation bilaterally Cardio Jugular venous distension: no JVD Rate: regular rate Rhythm: regular rhythm Heart sounds: S1 normal heart sound present and S2 normal heart sound present GI Inspection: Yes normal to inspection Palpation (GI): Soft to palpation and nontender Auscultation: normal bowel sounds Skin General skin exam: no rashes or lesions noted Neuro General: no focal motor deficits Extrem General: Yes full ROM Psych Appearance: grossly normal Coding Level of Care Code Est Pt Level 4 (51501) Est Pt Prev Care 40-64y(20931) Diagnoses Physical exam Z00.00 Migraines G43.909 Mild major depression F32.0 Undifferentiated connective tissue disease M35.9 Additional Codes PHQ-9 - 43094 - PHQ-9 Billing: Yes ([id number]) SEBAS-7 Assessment Billing - SEBAS-7 Assessment Tool: SEBAS-7 Assessment 80285 ([id number]) Time Spent (min) 40 Assessment & Plan Assessment & Plan (1) Physical exam: Code(s): Z00.00 - Encounter for general adult medical examination without abnormal findings Category: Medical (2) Migraines: Code(s): G43.909 - Migraine, unspecified, not intractable, without status migrainosus Category: Medical (3) Mild major depression: Code(s): F32.0 - Major depressive disorder, single episode, mild Category: Medical (4) Undifferentiated connective tissue disease: Code(s): M35.9 - Systemic involvement of connective tissue, unspecified Category: Medical Plan For migraine management, we have initiated therapy with low-dose Topamax, mindful of its efficacy in managing headaches and potential adjunctive benefits for weight reduction. For anemia management, we continue with daily iron supplementation and frequent hemoglobin checks to tailor dosage accordingly. The continuation of discussing diet and exercise regimens supports weight management and overall wellbeing; we addressed the role of a balanced activity plan and conscious diet control, integrating them as routine life practices. A rheumatology referral is in place for arthritis evaluation to examine other medical avenues for her cold-sensitive pain. The current depressive symptoms are targeted through modified pharmacotherapy including possible use of Bupropion, with close monitoring for response before and post-implementation of new medication regimes. Detailed counseling on opioid contraindications with Naltrexone is underscored. We will continue mental health monitoring alongside pharmacological management to improve her physical and psychological health outcomes. Regular follow-ups will ensure optimization of treatments. Patient was informed and verbally consented to the use of an ambient scribe for clinic note documentation during this visit. I discussed with the patient her tetanus vaccination background, determining it unnecessary to duplicate potentially recent vaccines administered within ten years. For migraine management, I recommended initiating Topamax and informed her of its dual benefit and potential side effects. We emphasized monitoring her daily iron intake and regular hemoglobin checks to address her anemia. I provided education on managing arthritis pain, including temperature sensitivity, and arranged a rheumatology referral. For depression, we explored pharmacological options including Bupropion for its ancillary weight management advantages, along with detailed conversation on insurance considerations. I ensured she was aware of the interactions Naltrexone may have with opioids and counseled on avoiding opioid use. Opportunities for exercise, alongside dietary regulations as part of holistic weight management, were shared, encouraging engagement and gradual recovery post-surgery. To ensure a positive outlook on her ongoing management, follow-up consultations were proposed to track treatment effectiveness across multiple fronts. Orders: Orders MR head/brain wo con Today G43.909 - Migraine, unspecified, not intractable, without status migrainosus Referrals Counseling Referral F32.0 - Major depressive disorder, single episode, mild Rheumatology Referral M35.9 - Systemic involvement of connective tissue, unspecified Medications: New topiramate XR 25 mg PO BEDTIME 30 days 30 ea 1RF bupropion HCl XL 150 mg PO QAM 90 days 90 tabs 1RF F32.0 - Major depressive disorder, single episode, mild tirzepatide (weight loss) (Zepbound) 5 mg (0.5 mL) subcut QWEEK 4 weeks 2 mL 0RF E66.811 - Obesity, class 1, Z68.34 - Body mass index [BMI] 34.0-34.9, adult Discontinued tirzepatide (weight loss) (Zepbound) for 4 weeks Discontinued Reason: Patient Completed Course 2.5 mg (0.5 mL) subcut QWEEK 4 weeks 2 mL 0RF E66.09 - Other obesity due to excess calories, Z68.37 - Body mass index [BMI] 37.0-37.9, adult Patient Instructions: - Try to obtain recent tetanus immunization records if possible; otherwise, look for a booster soon. - Initiate Topamax per pharmacy availability for migraine management. - Continue with current iron regimen and update hemoglobin levels regularly. - Incorporate cardiovascular activity into routine, aiming for 30 minutes, five days weekly. - Adhere to a low-calorie, balanced diet for weight control. - Follow-up with rheumatology referral for arthritis evaluation. - Be consistent with depression medication; consult if new symptoms arise. - Avoid opioid use if commencing Naltrexone due to interaction risks. - Schedule a follow-up appointment based on new medication response. - Seek psychotherapy or counseling support to aid depression management.
[2024-11-10 14:11] VITALS: BP 130/82; BMI 34.3
== END 2024-11-10 14:56 | disposition home or self-care (01) ==
LOC: HO.HMCH 13:59
PROVIDERS: PCP Internal Medicine; Visit Provider Internal Medicine
DX: Z00.00 Encounter for general adult medical examination without abnormal findings (principal); G43.909 Migraine, unspecified, not intractable, without status migrainosus; F32.0 Major depressive disorder, single episode, mild; M35.9 Systemic involvement of connective tissue, unspecified

== ENCOUNTER → 2024-11-10 13:58 | Outpatient (BNVA) | payer OTHER, SELFPAY | PROVIDERS: PCP Internal Medicine; Visit Provider Internal Medicine | DX: Z00.00 Encounter for general adult medical examination without abnormal findings (principal); G43.909 Migraine, unspecified, not intractable, without status migrainosus; F32.0 Major depressive disorder, single episode, mild; M35.9 Systemic involvement of connective tissue, unspecified | CPT/HCPCS: 96127; 99212; 99396 ==

== ENCOUNTER 2024-11-20 14:57 | Outpatient (REF) | payer OTHER, SELFPAY | END 2024-11-20 14:58 | disposition home or self-care (01) | LOC: HO.MRI 14:57 | PROVIDERS: PCP Internal Medicine; Visit Provider Internal Medicine | DX: G43.909 Migraine, unspecified, not intractable, without status migrainosus (principal) | CPT/HCPCS: 70551 ==

== ENCOUNTER → 2024-11-20 15:03 | Outpatient (BNV) | payer OTHER, SELFPAY | PROVIDERS: PCP Internal Medicine; Visit Provider Radiology Diagnostic Radiology | DX: G93.5 Compression of brain (principal) | CPT/HCPCS: 70551 ==

== ENCOUNTER 2024-12-01 13:28 | Outpatient (AMB) | payer OTHER, SELFPAY ==
--- NOTE | 2024-12-01 13:32 | MHC.OFFVIS ---
Vital Signs 12/01/24 13:35 Height 5 ft 4 in Weight 200 lb BMI 34.3 BP 128/72 Blood Pressure Location Rt brachial Position Sitting Intake Visit Reasons: INP-Other specified congnitial malformation brain Intake Note: Patient referred by PCP for migraines and following up after MRI Catering Associate Required: Yes Catering Associate Services: Catering Associate Offered & Declined Catering Associate Name: reinaldo Daughter Allergies tramadol [TRAMADOL] Allergy (Intermediate, Verified 12/01/24 13:37) DIZZY,N/V, nausea,dizziness, dizzy, nausea Medication List - Last Reconciled 12/01/24 by Brittney Hendricks MD bupropion HCl XL 150 mg PO QAM 90 days diclofenac sodium 1% (Voltaren Arthritis Pain) 2 grams topical BID ferrous sulfate 325 mg PO DAILY gabapentin 600 mg PO BID 30 days lorazepam 1 mg (2 x 0.5 mg) PO DAILY PRN 1 day ropinirole 0.25 mg PO BEDTIME 90 days tirzepatide (weight loss) (Zepbound) 7.5 mg (0.5 mL) subcut QWEEK 4 weeks topiramate XR 25 mg PO DAILY 90 days HPI Comments Details: 44y/o female comes for evaluation of migraines and chiari 1 malformation . Her daughter helps with history.she started with migraines in her teenage years . For the past 6 mths she notice dincrease in frequency and intensity of ehr headaches. Her PCP started her on Topiramate- but she stallings snot started it yet. she describes the headaches as unifrontal or unitemporal and radiates to the back and around her eyes.It is mostly on her right but sometimes has bilateral headaches. Character-pulsating, pounding Location-right frontotemporal Accompanying symptoms- nausea, dizziness Photophobia + and phonophobia + Visual aura-none No blurry vision Sensory aura- none Duration- now daily for weeks Frequency - used to be 1-2 /month now has daily headaches ABORTIVE meds- advil 200-600 mg as needed - once a day Preventive- gabapentin , topiramate MRI brain showed chiari 1 PFSH Medical History (Updated 12/01/24 @ 14:06 by Brittney Hendricks MD) Hyperreflexic Chronic migraine without aura, intractable, without status migrainosus Cervicalgia Anemia Undifferentiated connective tissue disease Abnormal antibody titer Spondylosis of lumbosacral spine with radiculopathy Trochanteric bursitis, right hip Bilateral hand pain Chronic pain of toes of both feet Raynaud phenomenon Dizziness Obese Left knee pain Surgical History Osteochondroma of left lower leg H/O carpal tunnel repair S/P ORIF (open reduction internal fixation) fracture History of gastrectomy History of tubal ligation History of appendectomy Family History Mother No problems noted. Father Diabetes mellitus Maternal Aunt Breast cancer Social History Housing: House Alcohol intake: current Alcohol intake frequency: holidays/special occasions only Alcohol type: hard liquor Patient Tobacco Use Status: Never used Tobacco e-Cigarette/Vaping Use: Never Used Second Hand Smoke Exposure: No service: No Current occupational status: unemployed Cognitive needs: No Hearing needs: No Vision needs: Yes Female Reproductive History Menstrual Age of Menarche: 13 Physical Exam Vital Signs: BMI result Body Mass Index 34.3 Const General: cooperative, healthy appearing and comfortable Nutritional Appearance: obese Orientation/consciousness: patient oriented x3 Eyes Pupils: Equal, round and reactive pupils present Neuro Other: Neck- restricted range of motion with tenderness in lateral cervicla muscles General: patient oriented x3, tone normal, moves all extremities and no focal motor deficits Cranial nerves: Yes Facial sensation intact/muscles of mastication intact, Yes Equal, round and reactive pupils present, Yes Bilaterally intact EOM present, Yes Nystagmus not present, Yes Normal facial strength present, Yes Midline tongue present and Yes Symmetric palate elevation present Cognition (Neuro): normal cognition Gait exam (Neuro): Antalgic gait present Motor exam (neuro): 5/5 motor strength present throughout and Normal motor muscle tone present throughout Deep tendon reflexes (DTR's): Right triceps reflex intensity grade: 3+, Left triceps reflex intensity grade: 3+, Rt Biceps (C5, C6): 3+, Left biceps reflex intensity grade: 3+, Right brachioradialis reflex intensity grade: 3+, Left brachioradialis reflex intensity grade: 3+, Right patellar reflex intensity grade: 3+ and Left patellar reflex intensity grade: 4+ Coordination: [id number] test normal Results Reviewed Results Reviewed: EXAMINATION: MR BRAIN WITHOUT CONTRAST CLINICAL INFORMATION: Migraines. COMPARISON: February 02, 2018 TECHNIQUE: MRI of the brain was obtained using routine sequences without contrast. FINDINGS: No restricted diffusion. No acute intracranial hemorrhage, mass effect, midline shift, hydrocephalus or herniation. Poole-white matter differentiation is normal. Flow-void signal within the main cerebral vessels is normal. Sellar/suprasellar region demonstrated no signal abnormality or masses. Craniocervical junction demonstrates a 3 mm descensus of the cerebellar tonsils below foramen magnum. There is a 1 cm intermediate slightly increased intrinsic hyperintense T1 and not restricted diffusion lesion in the diploe of the right parietal bone. Lobulated cyst, right maxillary sinus.. MR/MR head/brain wo con IMPRESSION: Cerebellar tonsillar ectopia. 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 spinal stenosis Code(s): R29.2 - Abnormal reflex Category: Medical Plan X ray c spine to evaluate for spondylitic changes I will trial her on magnesium 400mg qhs Riboflavin 400mg qam start topiramate Xr 25mg qhs Cyclobenzaprine 5mg qhs will consider MRI C spine Will consider ref to neurosurgery for possible decompression of chiari 1 if her symptoms worsen. Orders: Orders XR cervical spine 3V Today M54.2 - Cervicalgia Medications: New magnesium oxide 400 mg PO BEDTIME 30 tabs 6RF cyclobenzaprine 5 mg PO BEDTIME 30 tabs 1RF riboflavin (vitamin B2) 400 mg PO QAM 30 tabs 6RF Coding Level of Care Code New Pt Level 4 (91180) Complex EM visit Add On G2211 Diagnoses Chronic migraine without aura, intractable, without status migrainosus G43.719 Cerebellar tonsillar ectopia Q04.8 Hyperreflexic R29.2
[2024-12-01 13:35] VITALS: BP 128/72; BMI 34.3
== END 2024-12-01 14:10 | disposition home or self-care (01) ==
LOC: HO.HSMS 13:29
PROVIDERS: PCP Internal Medicine; Visit Provider Psychiatry & Neurology Neurology
DX: G43.719 Chronic migraine without aura, intractable, without status migrainosus (principal); Q04.8 Other specified congenital malformations of brain; R29.2 Abnormal reflex
CPT/HCPCS: 99204; G2211

== ENCOUNTER → 2024-12-01 13:28 | Outpatient (BNVA) | payer OTHER, SELFPAY | PROVIDERS: PCP Internal Medicine; Visit Provider Psychiatry & Neurology Neurology | DX: G43.719 Chronic migraine without aura, intractable, without status migrainosus (principal); Q04.8 Other specified congenital malformations of brain; R29.2 Abnormal reflex | CPT/HCPCS: 99202 ==

== ENCOUNTER 2024-12-03 15:53 | Outpatient (REF) | payer OTHER, SELFPAY ==
--- NOTE | ~2024-12-03 | XR_ITS ---
CLINICAL HISTORY: M54.2 - Cervicalgia 3 views cervical spine Comparison: None Findings: Normal alignment. No acute fractures or dislocation. No significant degenerative change. Prevertebral soft tissues within normal limits. IMPRESSION: No acute findings. This document has been electronically signed by: Brittny Lopez MD on 12/06/2024 13:57:09
== END 2024-12-03 15:54 | disposition home or self-care (01) ==
LOC: HO.XRAY 15:53
PROVIDERS: PCP Internal Medicine; Visit Provider Psychiatry & Neurology Neurology
DX: M54.2 Cervicalgia (principal)
CPT/HCPCS: 72040

== ENCOUNTER → 2024-12-03 15:56 | Outpatient (BNV) | payer OTHER, SELFPAY | PROVIDERS: PCP Internal Medicine; Visit Provider Radiology Diagnostic Radiology | DX: M54.2 Cervicalgia (principal) | CPT/HCPCS: 72040 ==

== ENCOUNTER 2025-03-01 09:27 | Outpatient (AMB) | payer OTHER, SELFPAY ==
[2025-03-01 09:29] VITALS: BP 102/70; PULSE 110; O2SAT 100; BMI 31.6
--- NOTE | 2025-03-01 09:29 | MHC.OFFVIS ---
Vital Signs 03/01/25 09:29 Height 5 ft 4 in Weight 184 lb BMI 31.6 BP 102/70 Blood Pressure Location Rt brachial Position Sitting Pulse 110 H Pulse Source Pulse Oximeter Pulse Oximetry (%) 100 Oxygen Delivery Method Room Air Intake Visit Reasons: 3 mnts f/u Intake Note: Patient presents 3 month follow up for chronic migraine's Information Clerk Brokerage Required: Yes Information Clerk Brokerage Name: Aaliyah Accompanied by: Self / Same As Patient Allergies tramadol (TRAMADOL) Allergy (Intermediate, Verified 03/01/25 09:34) DIZZY,N/V, nausea,dizziness, dizzy, nausea Medication List - Last Reconciled 03/01/25 by Brittney Hendricks MD bupropion HCl XL 150 mg PO QAM 90 days cyclobenzaprine 5 mg PO BEDTIME diclofenac sodium 1% (Voltaren Arthritis Pain) 2 grams topical BID ferrous sulfate 325 mg PO DAILY gabapentin 600 mg PO BID 30 days lorazepam 1 mg (2 x 0.5 mg) PO DAILY PRN 1 day magnesium oxide 400 mg PO BEDTIME riboflavin (vitamin B2) 400 mg PO QAM ropinirole 0.25 mg PO BEDTIME 90 days sumatriptan succinate take 1 tab at onset of headache; if no relief may repeat 1 tab after at least 2 hrs; max = 4 tabs/24 hr PO tirzepatide (weight loss) (Zepbound) 10 mg (0.5 mL) subcut QWEEK 4 weeks tirzepatide (weight loss) (Zepbound) 12.5 mg (0.5 mL) subcut QWEEK 4 weeks tirzepatide (weight loss) (Zepbound) 15 mg (0.5 mL) subcut QWEEK 4 weeks topiramate XR 50 mg (2 x 25 mg) PO DAILY 90 days HPI Comments Details: 44y/o female comes for evaluation of migraines and chiari 1 malformation .Frequency of migraines decreased to during her menstrual periods - takes advil or tries to sleep.It starts 2-3 days before periods and can last for 2-3 days after her periods end .( 2 weeks ) History from initial visit-Her daughter helps with history.she started with migraines in her teenage years . For the past 6 mths she notice dincrease in frequency and intensity of ehr headaches. Her PCP started her on Topiramate- but she stallings snot started it yet. she describes the headaches as unifrontal or unitemporal and radiates to the back and around her eyes.It is mostly on her right but sometimes has bilateral headaches. Character-pulsating, pounding Location-right frontotemporal Accompanying symptoms- nausea, dizziness Photophobia + and phonophobia + Visual aura-none No blurry vision Sensory aura- none Duration- now daily for weeks Frequency - used to be 1-2 /month now has daily headaches ABORTIVE meds- advil 200-600 mg as needed - once a day Preventive- gabapentin , topiramate MRI brain showed chiari 1 PFSH Medical History Hyperreflexic Chronic migraine without aura, intractable, without status migrainosus Cervicalgia Anemia Undifferentiated connective tissue disease Abnormal antibody titer Spondylosis of lumbosacral spine with radiculopathy Trochanteric bursitis, right hip Bilateral hand pain Chronic pain of toes of both feet Raynaud phenomenon Dizziness Obese Left knee pain Surgical History Osteochondroma of left lower leg H/O carpal tunnel repair S/P ORIF (open reduction internal fixation) fracture History of gastrectomy History of tubal ligation History of appendectomy Family History Mother No problems noted. Father Diabetes mellitus Maternal Aunt Breast cancer Social History Housing: House Alcohol intake: current Alcohol intake frequency: holidays/special occasions only Alcohol type: hard liquor Patient Tobacco Use Status: Never used Tobacco e-Cigarette/Vaping Use: Never Used Second Hand Smoke Exposure: No service: No Current occupational status: unemployed Cognitive needs: No Hearing needs: No Vision needs: Yes Female Reproductive History Menstrual Age of Menarche: 13 Physical Exam Vital Signs: Last Vital Signs Pulse 110 H 03/01/25 09:29 BP 102/70 03/01/25 09:29 Pulse Ox 100 03/01/25 09:29 Oxygen Delivery Method Room Air 03/01/25 09:29 BMI result Body Mass Index 31.6 Const General: cooperative, healthy appearing and comfortable Nutritional Appearance: obese Orientation/consciousness: patient oriented x3 Eyes Pupils: Equal, round and reactive pupils present Neuro Other: Neck- restricted range of motion with tenderness in lateral cervical muscles General: patient oriented x3, tone normal, moves all extremities and no focal motor deficits Cranial nerves: Yes Facial sensation intact/muscles of mastication intact, Yes Equal, round and reactive pupils present, Yes Bilaterally intact EOM present, Yes Nystagmus not present, Yes Normal facial strength present, Yes Midline tongue present and Yes Symmetric palate elevation present Cognition (Neuro): normal cognition Gait exam (Neuro): Antalgic gait present Motor exam (neuro): 5/5 motor strength present throughout and Normal motor muscle tone present throughout Coordination: [id number] test normal Assessment & Plan Assessment & Plan (1) Chronic migraine without aura, intractable, without status migrainosus: Code(s): G43.719 - Chronic migraine without aura, intractable, without status migrainosus Category: Medical (2) Cerebellar tonsillar ectopia: Comment: chiari 1 Code(s): Q04.8 - Other specified congenital malformations of brain Category: Medical (3) Hyperreflexic: Comment: ? spinal stenosis Code(s): R29.2 - Abnormal reflex Category: Medical Plan magnesium 400mg qhs Riboflavin 400mg qam Increase topiramate Xr 50mg qhs Gabapentin 600mg bid Cyclobenzaprine 5mg qhs Medications: New sumatriptan succinate take 1 tab at onset of headache; if no relief may repeat 1 tab after at least 2 hrs; max = 4 tabs/24 hr PO 14 tabs 6RF Changed From topiramate XR 25 mg PO DAILY 90 days 90 caps 1RF To topiramate XR 50 mg (2 x 25 mg) PO DAILY 90 days 180 caps 1RF Refilled topiramate XR 50 mg (2 x 25 mg) PO DAILY 180 caps 1RF 90 days Coding Level of Care Code Est Pt Level 4 (57322) Complex EM visit Add On G2211 Diagnoses Chronic migraine without aura, intractable, without status migrainosus G43.719 Cerebellar tonsillar ectopia Q04.8 Hyperreflexic R29.2
== END 2025-03-01 09:56 | disposition home or self-care (01) ==
LOC: HO.HSMS 09:27
PROVIDERS: PCP Internal Medicine; Visit Provider Psychiatry & Neurology Neurology
DX: G43.719 Chronic migraine without aura, intractable, without status migrainosus (principal); Q04.8 Other specified congenital malformations of brain; R29.2 Abnormal reflex
CPT/HCPCS: 99214

== ENCOUNTER → 2025-03-01 09:27 | Outpatient (BNVA) | payer OTHER, SELFPAY | PROVIDERS: PCP Internal Medicine; Visit Provider Psychiatry & Neurology Neurology | DX: G43.719 Chronic migraine without aura, intractable, without status migrainosus (principal); Q04.8 Other specified congenital malformations of brain; R29.2 Abnormal reflex | CPT/HCPCS: 99212 ==

== ENCOUNTER 2025-03-17 08:34 | Outpatient (AMB) | payer OTHER, SELFPAY ==
--- NOTE | 2025-03-17 08:35 | AM.OFFWIN_ITS ---
Intake Vital Signs 03/17/25 08:43 Height 5 ft 4 in Weight 184 lb BMI 31.6 BP 108/64 Blood Pressure Location Rt brachial Position Sitting Respiration 16 Pulse 96 Pulse Source Pulse Oximeter Pulse Oximetry (%) 99 Oxygen Delivery Method Room Air Intake Visit Reasons: EP-hemorrhoid Intake Note: c/o hemorrhoids x 3 weeks Patient Tobacco Use Status: Never used Tobacco Accompanied by: Self / Same As Patient Allergies tramadol (TRAMADOL) Allergy (Intermediate, Verified 03/17/25 08:35) DIZZY,N/V, nausea,dizziness, dizzy, nausea Do you need a note to return to daycare/school/sports/work: No HPI HPI Comments History of Present Illness Details 44 y/o Female patient who presents to [facility] with c/o Rectal Pain due to Hemorrhoids. Reports pain started ~ 3 weeks ago. Denies rectal bleeding or itching. She does endorse occasional constipation. [facility] Medical History (Updated 03/17/25 @ 08:59 by Shona Hall NP) External hemorrhoid Hyperreflexic Chronic migraine without aura, intractable, without status migrainosus Cervicalgia Anemia Undifferentiated connective tissue disease Abnormal antibody titer Spondylosis of lumbosacral spine with radiculopathy Trochanteric bursitis, right hip Bilateral hand pain Chronic pain of toes of both feet Raynaud phenomenon Dizziness Obese Left knee pain Surgical History Osteochondroma of left lower leg H/O carpal tunnel repair S/P ORIF (open reduction internal fixation) fracture History of gastrectomy History of tubal ligation History of appendectomy Family History Mother No problems noted. Father Diabetes mellitus Maternal Aunt Breast cancer Social History Housing: House Alcohol intake: current Alcohol intake frequency: holidays/special occasions only Alcohol type: hard liquor Patient Tobacco Use Status: Never used Tobacco e-Cigarette/Vaping Use: Never Used Second Hand Smoke Exposure: No service: No Current occupational status: unemployed Cognitive needs: No Hearing needs: No Vision needs: Yes Female Reproductive History Menstrual Age of Menarche: 13 Review of Systems Const All systems reviewed & are unremarkable except as noted in HPI and below Physical Exam Vital Signs: Last Vital Signs Pulse 96 03/17/25 08:43 Resp 16 03/17/25 08:43 BP 108/64 03/17/25 08:43 Pulse Ox 99 03/17/25 08:43 Oxygen Delivery Method Room Air 03/17/25 08:43 BMI result Body Mass Index 31.6 Const General: no acute distress Nutritional Appearance: well nourished Orientation/consciousness: patient oriented x3 GI Rectal Exam - Female: normal sphincter tone and External hemorrhoid(s) present Neuro General: patient oriented x3, gait normal and moves all extremities Psych Speech and movement: Normal speech and movement present Assessment & Plan Assessment & Plan (1) External hemorrhoid: Code(s): K64.4 - Residual hemorrhoidal skin tags Plan: Ordered Hydrocortisone cream BID. Advised to increase Fiber intake in her diet to avoid Constipation. RTC if not better. Medications: New hydrocortisone 2.5% 1 appl NC BID 30 grams 1RF hemorrhoids K64.4 - Residual hemorrhoidal skin tags Coding Level of Care Code Est Pt Level 4 (10222) Diagnoses External hemorrhoid K64.4 Time Spent (min) 20
[2025-03-17 08:43] VITALS: BP 108/64; PULSE 96; RESP 16; O2SAT 99; BMI 31.6
== END 2025-03-17 09:17 | disposition home or self-care (01) ==
PROVIDERS: PCP Internal Medicine; Visit Provider Nurse Practitioner Family
DX: K64.4 Residual hemorrhoidal skin tags (principal)

== ENCOUNTER → 2025-03-17 08:34 | Outpatient (BNVA) | payer OTHER, SELFPAY | PROVIDERS: PCP Internal Medicine; Visit Provider Nurse Practitioner Family | DX: K64.4 Residual hemorrhoidal skin tags (principal) | CPT/HCPCS: 99212 ==

== ENCOUNTER 2025-03-22 08:42 | Outpatient (AMB) | payer OTHER, SELFPAY ==
--- NOTE | 2025-03-22 08:48 | A.OFFVIS_ITS ---
Vital Signs 03/22/25 08:54 Height 5 ft 4 in Weight 181 lb BMI 31.1 BP 112/68 Intake Visit Reasons: annual/do not reschedule Test Data Developer Required: Yes Test Data Developer Language: Physical Therapy Instructor Services: Test Data Developer Present (in person) Test Data Developer Name: ROSALIE Jackson Information Interpreted: non-clinical & clinical Clockmaker: Clockmaker Present (ROSALIE Jackson) Accompanied by: Self / Same As Patient Allergies tramadol (TRAMADOL) Allergy (Intermediate, Verified 03/22/25 08:54) DIZZY,N/V, nausea,dizziness, dizzy, nausea Is last menstrual period known: Yes Last menstrual period: 03/08/25 Post menopausal: No Patient : No HPI Comments Details: Presenting for annual exam. No complaints. Last Pap/HPV was in 02/15 Last Mammogram was BI-RADS 1 in 11/19 [facility] Medical History External hemorrhoid Hyperreflexic Chronic migraine without aura, intractable, without status migrainosus Cervicalgia Anemia Undifferentiated connective tissue disease Abnormal antibody titer Spondylosis of lumbosacral spine with radiculopathy Trochanteric bursitis, right hip Bilateral hand pain Chronic pain of toes of both feet Raynaud phenomenon Dizziness Obese Left knee pain Surgical History Osteochondroma of left lower leg H/O carpal tunnel repair S/P ORIF (open reduction internal fixation) fracture History of gastrectomy History of tubal ligation History of appendectomy Family History Mother No problems noted. Father Diabetes mellitus Maternal Aunt Breast cancer Social History Housing: House Alcohol intake: current Alcohol intake frequency: holidays/special occasions only Alcohol type: hard liquor Patient Tobacco Use Status: Never used Tobacco e-Cigarette/Vaping Use: Never Used Second Hand Smoke Exposure: No Patient : No service: No Current occupational status: unemployed Cognitive needs: No Hearing needs: No Vision needs: Yes Female Reproductive History Menstrual Age of Menarche: 13 Duration of menses: 6-7 days Date of last menstrual period: 03/08/25 control method: permanent sterilization Total pregnancies: 4 Full term: 3 Date of last pap smear: 01/25/22 (negative pap smear, negative hpv ) Date of Mammogram: 11/02/24 (bi rad 1) Review of Systems Const All systems reviewed & are unremarkable except as noted in HPI and below Card Reports as per HPI Resp Reports as per HPI GI Reports as per HPI and Reports no additional complaints Reports as per HPI Physical Exam Vital Signs: Last Vital Signs BP 112/68 03/22/25 08:54 BMI result Body Mass Index 31.1 Const General: cooperative, healthy appearing and comfortable Chest Chest palpation & inspection: normal inspection of the chest and normal palpation of entire chest wall Breast/axilla inspection: normal inspection of the breasts and normal inspection of the axillae Breast/axilla palpation: normal palpation of the breasts, normal palpation of the axillae and no axillary lymphadenopathy Resp Effort & Inspection: normal respiratory effort Auscultation: clear to auscultation bilaterally Percussion: percussion normal Cardio Palpation: normal PMI Rate: regular rate Rhythm: regular rhythm Heart sounds: no murmurs and no rubs Peripheral pulses: Peripheral pulses 2+ throughout GI Inspection: Yes normal to inspection Palpation (GI): Soft to palpation, nontender, no guarding, not rigid and No hepatosplenomegaly present Percussion: Yes normal to percussion Auscultation: normal bowel sounds Rectal Exam - Female: deferred General: Yes bladder normal to palpation External Female Exam: No lesion Speculum Exam - Vagina: normal appearance of the vagina, normal palpation, normal vaginal discharge and not erythematous Speculum Exam - Cervix: normal appearance of the cervix and normal palpation Bimanual exam- vagina & uterus: normal bimanual exam, normal palpation, uterine size normal, bladder normal to palpation, consistency normal and normal pa lpation Bimanual Exam- Adnexa, other: normal adnexae, no masses and no tenderness Assessment & Plan Assessment & Plan (1) Well woman exam with routine gynecological exam: Code(s): Z01.419 - Encounter for gynecological examination (general) (routine) without abnormal findings Category: Medical Plan: Cotesting not indicated this year. Instructions given to patient to schedule next screening Mammogram in 11/20. Counseled the patient about the recommended dietary allowance of 1000 mg of Calcium & 600 IU of vitamin D. The patient was instructed to perform monthly self-breast exams and to schedule an annual exam in a year; All questions answered and the patient verbalized understanding. Instructed the patient to schedule annual exam in a year Coding Level of Care Code Est Pt Prev Care 40-64y(49821) Diagnoses Well woman exam with routine gynecological exam Z01.419
[2025-03-22 08:54] VITALS: BP 112/68; BMI 31.1
== END 2025-03-22 09:11 | disposition home or self-care (01) ==
LOC: HO.HWS 08:43
PROVIDERS: PCP Internal Medicine; Visit Provider Obstetrics & Gynecology
DX: Z01.419 Encounter for gynecological examination (general) (routine) without abnormal findings (principal)
CPT/HCPCS: 99396; 99459

== ENCOUNTER → 2025-03-22 08:42 | Outpatient (BNVA) | payer OTHER, SELFPAY | PROVIDERS: PCP Internal Medicine; Visit Provider Obstetrics & Gynecology | DX: Z01.419 Encounter for gynecological examination (general) (routine) without abnormal findings (principal) | CPT/HCPCS: 99396 ==

== ENCOUNTER 2025-05-12 10:34 | Outpatient (AMB) | payer OTHER, SELFPAY ==
[2025-05-12 10:37] VITALS: BP 110/70; PULSE 87; RESP 18; TEMP 36.3; O2SAT 94; BMI 29.8
--- NOTE | 2025-05-12 10:37 | MHC.PC.OV ---
Vital Signs 05/12/25 10:37 Height 5 ft 4 in Weight 173 lb 6 oz BMI 29.8 BP 110/70 Blood Pressure Location Lt brachial Position Sitting Respiration 18 Pulse 87 Pulse Source Pulse Oximeter Temp 97.3 F Temp Source Temporal Artery Scan Pulse Oximetry (%) 94 Oxygen Delivery Method Room Air Intake Visit Reasons: 6 month f/u Disaster Recovery Specialist Required: No Accompanied by: Self / Same As Patient Allergies tramadol (TRAMADOL) Allergy (Intermediate, Verified 05/12/25 10:51) DIZZY,N/V, nausea,dizziness, dizzy, nausea Medication List - Last Reconciled 05/12/25 by Alee Melendez MD diazepam 2 mg PO BID diclofenac sodium 1% (Voltaren Arthritis Pain) 2 grams topical BID duloxetine 20 mg PO BID gabapentin 600 mg PO BID 30 days hydrocortisone 2.5% 1 appl [place] BID magnesium oxide 400 mg PO BEDTIME [nikson topical] riboflavin (vitamin B2) 400 mg PO QAM ropinirole 0.25 mg PO BEDTIME 90 days sumatriptan succinate take 1 tab at onset of headache; if no relief may repeat 1 tab after at least 2 hrs; max = 4 tabs/24 hr PO tirzepatide (weight loss) (Zepbound) 15 mg (0.5 mL) subcut QWEEK 4 weeks topiramate XR 50 mg (2 x 25 mg) PO DAILY 90 days Tobacco use date assessed: 05/12/25 Dental Screening Dental Screen Date: 05/12/25 Did you have a dental visit in the last 12 months?: Yes Did you have a dental problem in the last 6 months where you did not have access to dental care?: No Was dental information given to patient?: Patient has dentist HPI HPI Comments History of Present Illness Details The patient is a 44-year-old female presenting for management of multiple chronic conditions including migraines, depression with anxiety, and undifferentiated connective tissue disease. The patient reports a history of migraines, which initially persisted despite treatment with 25 mg of medication. Upon increasing the dosage to 50 mg, the frequency and severity of headaches decreased significantly, with only one severe episode lasting a week. She notes mild headaches occurring one to two days before menstruation, which resolve spontaneously. The patient has been diagnosed with undifferentiated connective tissue disease and is under the care of a tube backer, with a follow-up appointment scheduled for June. She is currently taking gabapentin for body pain associated with this condition and requires a refill. The patient experiences depression with anxiety, managed by a psychiatrist who prescribes diazepam and duloxetine. She is also taking magnesium and vitamin B2 for migraine prevention, prescribed by her neurologist. The patient reports restless leg syndrome, for which she takes ropinirole, and requires a refill for this medication as well. [facility] Medical History (Updated 05/12/25 @ 12:24 by Alee Melendez MD) External hemorrhoid Hyperreflexic Chronic migraine without aura, intractable, without status migrainosus Cervicalgia Anemia Undifferentiated connective tissue disease Abnormal antibody titer Spondylosis of lumbosacral spine with radiculopathy Trochanteric bursitis, right hip Bilateral hand pain Chronic pain of toes of both feet Raynaud phenomenon Dizziness Obese Left knee pain Surgical History Osteochondroma of left lower leg H/O carpal tunnel repair S/P ORIF (open reduction internal fixation) fracture History of gastrectomy History of tubal ligation History of appendectomy Family History Mother No problems noted. Father Diabetes mellitus Maternal Aunt Breast cancer Social History Housing: House Alcohol intake: current Alcohol intake frequency: holidays/special occasions only Alcohol type: hard liquor Patient Tobacco Use Status: Never used Tobacco e-Cigarette/Vaping Use: Never Used Second Hand Smoke Exposure: No service: No Current occupational status: unemployed Cognitive needs: No Hearing needs: No Vision needs: Yes Female Reproductive History Menstrual Age of Menarche: 13 Questionnaire Thrive Questionnaire Date Thrive assessed: 11/03/24 I am a: Patient What is your living situation today?: I have a steady place to live Within the past 12 months, did the food you bought not last and you didn't have the money to get more?: I choose not to answer this question Within the past 12 months, did you worry whether your food would run out before you got money to buy more?: Never true Do you have trouble paying for medicines?: No Do you have trouble getting transportation to medical appointments?: No Do you have trouble paying your heating and electricity bill?: No Do you have trouble taking care of your child, family member or friend?: No Do you have trouble with day-to-day activities such as bathing, preparing meals, shopping, managing finances, etc.?: Yes Are you currently unemployed and looking for a job?: Yes Are you interested in more education?: I choose not to answer this question Please select the resources that you would like help with: None Currently or been in a relationship where the following occur: No concerns reported THRIVE Score: 0 SEBAS-7 AMB Questionnaire SEBAS-7 Date SEBAS - 7 assessed: 11/10/24 Source: Developed by Drs. Braulio Cloud, Sendy Ayala, Thiago Mills and colleagues, with an educational adam from [employer]. Review of Systems Const All systems reviewed & are unremarkable except as noted in HPI and below Card Denies chest pain at rest, Denies chest pain with activity, Denies edema, Denies irregular heart rhythm, Denies claudication, Denies dyspnea, Denies dyspnea on exertion, Denies orthopnea, Denies paroxysmal nocturnal dyspnea and Denies slow heart rate Resp Denies cough, Denies dyspnea and Denies dyspnea on exertion GI Denies abdominal pain, Denies change in bowel habits, Denies excessive flatus, Denies nausea and Denies vomiting Physical exam (Primary Care) Vital Signs: Last Vital Signs Temp 97.3 F 05/12/25 10:37 Pulse 87 05/12/25 10:37 Resp 18 05/12/25 10:37 BP 110/70 05/12/25 10:37 Pulse Ox 94 05/12/25 10:37 Oxygen Delivery Method Room Air 05/12/25 10:37 BMI result Body Mass Index 29.8 Tobacco/Smoking Status: Tobacco use Status Tobacco use date assessed 05/12/25 05/12/25 10:46 Patient Tobacco Use Status Never used Tobacco 05/12/25 10:46 e-Cigarette/Vaping Use Never Used 05/12/25 10:46 Thrive Assessment: Date of Thrive Assessment Date Thrive assessed 11/03/24 05/12/25 10:46 Currently or been in a relationship where the following occur: No concerns reported Resp Effort & Inspection: normal respiratory effort Auscultation: clear to auscultation bilaterally Cardio Jugular venous distension: no JVD Rate: regular rate Rhythm: regular rhythm Heart sounds: S1 normal heart sound present and S2 normal heart sound present Extrem General: Yes full ROM Coding Level of Care Code Est Pt Level 4 (79281) Diagnoses Mild major depression F32.0 Undifferentiated connective tissue disease M35.9 Chronic migraine without aura, intractable, without status migrainosus G43.719 SEBAS (generalized anxiety disorder) F41.1 Restless leg syndrome G25.81 Time Spent (min) 21 Assessment & Plan Assessment & Plan (1) Mild major depression: Code(s): F32.0 - Major depressive disorder, single episode, mild Category: Medical (2) Undifferentiated connective tissue disease: Code(s): M35.9 - Systemic involvement of connective tissue, unspecified Category: Medical (3) Chronic migraine without aura, intractable, without status migrainosus: Code(s): G43.719 - Chronic migraine without aura, intractable, without status migrainosus Category: Medical (4) SEBAS (generalized anxiety disorder): Code(s): F41.1 - Generalized anxiety disorder Category: Medical (5) Restless leg syndrome: Code(s): G25.81 - Restless legs syndrome Category: Medical Plan Plan 1. Migraine, unspecified, not intractable, without status migrainosus G43.909 The patient reports improvement in migraine symptoms after increasing the medication dosage to 50 mg, with only one severe episode noted since the adjustment. Continued management with current medication is advised, with attention to any changes in frequency or severity of symptoms. 2. Systemic involvement of connective tissue, unspecified M35.9 HCC 40 The patient is under the care of a tube backer for undifferentiated connective tissue disease, with a follow-up appointment scheduled for June. Gabapentin is prescribed for body pain management, and a refill is required. 3. Other specified anxiety disorders F41.8 The patient is managed by a psychiatrist with diazepam and duloxetine for depression with anxiety. Continued psychiatric follow-up is recommended to monitor and adjust treatment as necessary. 4. Restless legs syndrome G25.81 The patient requires a refill of ropinirole for restless leg syndrome management. Continued monitoring of symptoms and medication efficacy is advised. Orders: Orders Lipid Panel 6 Months E78.5 - Hyperlipidemia, unspecified Comprehensive Clubb. Panel Fast 6 Months M35.9 - Systemic involvement of connective tissue, unspecified Complete Blood Count Auto Diff 6 Months D64.9 - Anemia, unspecified Vitamin D 25-OH Total 6 Months E55.9 - Vitamin D deficiency, unspecified IRON PROFILE 6 Months D64.9 - Anemia, unspecified Medications: Refilled ropinirole administer 1-3 hours before bedtime 0.25 mg PO BEDTIME 90 tabs 0RF 90 days gabapentin 600 mg PO BID 60 tabs 6RF 30 days
== END 2025-05-12 11:01 | disposition home or self-care (01) ==
LOC: HO.HMCH 10:34
PROVIDERS: PCP Internal Medicine; Visit Provider Internal Medicine
DX: F32.0 Major depressive disorder, single episode, mild (principal); M35.9 Systemic involvement of connective tissue, unspecified; G43.719 Chronic migraine without aura, intractable, without status migrainosus; F41.1 Generalized anxiety disorder; G25.81 Restless legs syndrome

== ENCOUNTER → 2025-05-12 10:34 | Outpatient (BNVA) | payer OTHER, SELFPAY | PROVIDERS: PCP Internal Medicine; Visit Provider Internal Medicine | DX: F41.1 Generalized anxiety disorder (principal); F32.0 Major depressive disorder, single episode, mild; G43.909 Migraine, unspecified, not intractable, without status migrainosus; G25.81 Restless legs syndrome; M35.9 Systemic involvement of connective tissue, unspecified; G43.719 Chronic migraine without aura, intractable, without status migrainosus | CPT/HCPCS: 99212 ==

== ENCOUNTER 2025-07-13 09:20 | Outpatient (REF) | payer OTHER, SELFPAY ==
[2025-07-13 14:16] LABS: MANUAL DIFF FLAG NO
[2025-07-13 14:28] LABS: Hematocrit 31.4 % (37.0-47.0); Hemoglobin 9.5 g/dl (12.0-16.0); Imm Gran Abs Auto 0.01 X10*3/uL (0.00-0.03); Imm Gran Pct Auto 0.2 % (0.0-0.4); Lymphocytes Absolute Auto 2.1 X10*3/uL (1.2-4.9); Mean Corpuscular HGB Conc 30.3 g/dl (31.0-35.0); Mean Corpuscular Hemoglobin 23.2 pg (27.0-33.0); Mean Corpuscular Volume 76.6 fL (80.0-98.0); NRBC Abs Auto 0.000 X10*3/uL (0.0-0.012); NRBC Pct Auto 0.0 /100WBC (0.0-0.2); Platelet Count 200 X10*3/uL (160-400); Red Blood Count 4.10 X10*6/uL (4.20-5.50); White Blood Count 4.9 X10*3/uL (4.8-10.8)
[2025-07-13 14:58] LABS: Alanine Aminotransferase 16 U/L (0-31); Aspartate Amino Transferase 22 U/L (5-31); Estimated Glomerular Filt Rate > 60
[2025-07-15 13:13] LABS: SM/Ribonucleoprotein Ab <1.0 NEG AI (<1.0 NEG); Smith Protein <1.0 NEG AI (<1.0 NEG)
== END 2025-07-13 09:21 | disposition home or self-care (01) ==
LOC: HO.HKASLDS 09:20
PROVIDERS: Internal Medicine Rheumatology; PCP Internal Medicine; Visit Provider Psychiatry & Neurology Neurology
DX: G43.719 Chronic migraine without aura, intractable, without status migrainosus (principal); Q04.8 Other specified congenital malformations of brain; R29.2 Abnormal reflex; M70.61 Trochanteric bursitis, right hip; M25.511 Pain in right shoulder; M79.7 Fibromyalgia; R76.89 Other specified abnormal immunological findings in serum; Z79.899 Other long term (current) drug therapy; G43.919 Migraine, unspecified, intractable, without status migrainosus; Z01.84 Encounter for antibody response examination
CPT/HCPCS: 36415; 82565; 84450; 84460; 85025; 86038; 86140; 86160; 86225; 86235; 99212

== ENCOUNTER 2025-07-13 09:20 | Outpatient (AMB) | payer OTHER, SELFPAY ==
[2025-07-13 10:55] VITALS: BP 100/72; PULSE 83; O2SAT 99; BMI 28.9
--- NOTE | 2025-07-13 10:55 | A.OFFVIS_ITS ---
Vital Signs 07/13/25 10:55 Height 5 ft 4 in Weight 168 lb 8 oz BMI 28.9 BP 100/72 Blood Pressure Location Rt brachial Position Sitting Pulse 83 Pulse Source Pulse Oximeter Pulse Oximetry (%) 99 Oxygen Delivery Method Room Air Intake Visit Reasons: Systemic involvement of connective tissue Intake Note: Patient presents today for a Chronic right hip pain. fibromyalgia and complete body Senior Animal Trainer Name: shayna Information Interpreted: non-clinical & clinical Stand Up Forklift Operator: Stand Up Forklift Operator Present Allergies tramadol (TRAMADOL) Allergy (Intermediate, Verified 07/13/25 10:56) DIZZY,N/V, nausea,dizziness, dizzy, nausea HPI HPI Systemic involvement of connective tissue: Details: Bolivian speaking patient. She also speaks Macanese. Daughter Emilie contributes to history and interprets for patient at times. Patient last seen 2023 Genie [place]. She was told she had a disease but did not have follow-up for treatment due to PA leaving. She was also told she had fibromyalgia years ago but has not received treatment changes. She is on gabapentin.. In 2014 she had +Sm/BEEF CATTLE FARM MANAGER testing documented in Genie Mccain's note from reviewing records, which I could not locate. Repeat testing 07/2023 negative CASTRO, Sm, BEEF CATTLE FARM MANAGER with low C3 and C4. No fevers, dyspnea, pleurisy, hair loss, urinary symptoms +rashes with pruiritis, intermittent. +photosensitivity. +Raynaud's syndrome constantly active in hands all year. She also has raynaud's syndrome in feet. She is unable to tolerate gloves. She does not like the way gloves feel on her. She wears thick socks. She wears a heating blanket in the summertime. +Headaches. Seeing neurology for evaluation No family history of rheumatological disease. Medications reviewed. Medical history reviewed with patient. She has had surgery to her left knee. Three weeks ago she started experiencing right shoulder pain. She may have tried to wake up her significant other with her shoulder at night when he was snoring contributing to shoulder pain. She has limited movement. She has been experiencing chronic right hip pain. In the past she has tried PT but it exacerbated her pain. She has not had cortisone injections. She has pain when she touches the area. [facility] Medical History (Updated 07/13/25 @ 12:33 by Andrew Vanegas MD) Fibromyalgia External hemorrhoid Hyperreflexic Chronic migraine without aura, intractable, without status migrainosus Cervicalgia Anemia Undifferentiated connective tissue disease Abnormal antibody titer Spondylosis of lumbosacral spine with radiculopathy Trochanteric bursitis, right hip Bilateral hand pain Chronic pain of toes of both feet Raynaud phenomenon Dizziness Obese Left knee pain Surgical History Osteochondroma of left lower leg H/O carpal tunnel repair S/P ORIF (open reduction internal fixation) fracture History of gastrectomy History of tubal ligation History of appendectomy Family History Mother No problems noted. Father Diabetes mellitus Maternal Aunt Breast cancer Social History Housing: House Alcohol intake: current Alcohol intake frequency: holidays/special occasions only Alcohol type: hard liquor Patient Tobacco Use Status: Never used Tobacco e-Cigarette/Vaping Use: Never Used Second Hand Smoke Exposure: No service: No Current occupational status: unemployed Cognitive needs: No Hearing needs: No Vision needs: Yes Female Reproductive History Menstrual Age of Menarche: 13 Physical Exam Exam Exam: General: Comfortable CVS: RRR Respiratory: clear to auscultation bilaterally. Good respiratory effort Skin: No lesions seen, digital ulcerations or discoloration of fingertips MSK: Right shoulder abduction actively 90 degrees with limited internal and external rotation. Range of motion of right shoulder is full with passive range of motion. Left shoulder is normal. No synovitis. Diffuse allodynia of lower extremities. Vital Signs: Last Vital Signs Pulse 83 07/13/25 10:55 BP 100/72 07/13/25 10:55 Pulse Ox 99 07/13/25 10:55 Oxygen Delivery Method Room Air 07/13/25 10:55 BMI result Body Mass Index 28.9 Assessment & Plan Assessment & Plan (1) Positive sm/BEEF CATTLE FARM MANAGER antibody: Comment: She has symptoms of active Raynaud's, intermittent rashes associated with pruritus and photosensitivity. There is a past history of positive Drew/BEEF CATTLE FARM MANAGER antibody 2014 documented in past machine hamper maker's PA note but repeat July 2023 was negative. Code(s): R76.89 - Other specified abnormal immunological findings in serum Category: Medical Plan: I am repeating rheumatological labs We discussed conservative management for Raynaud's phenomenon. She will take photos of active flares for next visit. She will try applying heating pad to her hands and feet when flares are active. She will continue to use hand warmers. She will double up on socks. Return to clinic in 2 months (2) Trochanteric bursitis, right hip: Comment: Chronic. Unable to tolerate PT due to increased pain. Code(s): M70.61 - Trochanteric bursitis, right hip Category: Medical Plan: Plan for right trochanteric bursa cortisone injection next visit (3) Right shoulder pain: Comment: Suspect rotator cuff tendinopathy Code(s): M25.511 - Pain in right shoulder Category: Medical Plan: X-ray ordered PT ordered (4) Fibromyalgia: Comment: Uncontrolled. She is on gabapentin. Code(s): M79.7 - Fibromyalgia Category: Medical Plan: Information on fibromyalgia given to patient. I recommend PCP follow-up for consideration of up titration of gabapentin to control her symptoms. Combination treatment may be helpful with consideration of neuropsychiatric medications: duloxetine or Savella Orders: Orders Complete Blood Count Auto Diff Today R76.89 - Other specified abnormal immunological findings in serum Creatinine Today R76.89 - Other specified abnormal immunological findings in serum PT Evaluation and Treatment Today M25.511 - Pain in right shoulder, M79.7 - Fibromyalgia XR shoulder RT min 2V Today M25.511 - Pain in right shoulder Alanine Aminotransferase Today R76.89 - Other specified abnormal immunological findings in serum Anti DNA DS Antibody Today R76.89 - Other specified abnormal immunological findings in serum Aspartate Amino Transferase Today R76.89 - Other specified abnormal immunological findings in serum C Reactive Protein Today R76.89 - Other specified abnormal immunological findings in serum, Z79.899 - Other retirement (current) drug therapy Complement C4 Today R76.89 - Other specified abnormal immunological findings in serum Complement C3 Today R76.89 - Other specified abnormal immunological findings in serum CASTRO Reflex Titer and Pattern Today R76.89 - Other specified abnormal immunological findings in serum Sm Sm/BEEF CATTLE FARM MANAGER Antibodies Today R76.89 - Other specified abnormal immunological findings in serum Coding Level of Care Code Est Pt Level 5 (78266) Diagnoses Positive sm/BEEF CATTLE FARM MANAGER antibody R76.89 Trochanteric bursitis, right hip M70.61 Right shoulder pain M25.511 Fibromyalgia M79.7 Time Spent (min) 40
== END 2025-07-13 13:03 | disposition home or self-care (01) ==
LOC: HO.RHES 09:21
PROVIDERS: PCP Internal Medicine; Visit Provider Internal Medicine Rheumatology
DX: R76.89 Other specified abnormal immunological findings in serum (principal); M70.61 Trochanteric bursitis, right hip; M25.511 Pain in right shoulder; M79.7 Fibromyalgia
CPT/HCPCS: 99215

== ENCOUNTER 2025-07-13 09:20 | Outpatient (AMB) | payer OTHER, SELFPAY ==
[2025-07-13 09:24] VITALS: BP 106/78; PULSE 93; O2SAT 99; BMI 28.9
--- NOTE | 2025-07-13 09:24 | MHC.OFFVIS ---
Vital Signs 07/13/25 09:24 Height 5 ft 4 in Weight 168 lb 8 oz BMI 28.9 BP 106/78 Blood Pressure Location Rt brachial Position Sitting Pulse 93 Pulse Source Pulse Oximeter Pulse Oximetry (%) 99 Oxygen Delivery Method Room Air Intake Visit Reasons: 4mnth Intake Note: Follow up Chronic migraine without aura, intractable, without status migrainosus, Cerebellar tonsillar ectopia and abnormal reflex. Mag Oxide refill Director Data Architecture Required: Yes Director Data Architecture Services: Director Data Architecture Offered & Declined Director Data Architecture Name: Daughter to interpret Accompanied by: Daughter Allergies tramadol (TRAMADOL) Allergy (Intermediate, Verified 07/13/25 09:24) DIZZY,N/V, nausea,dizziness, dizzy, nausea HPI Comments Details: 45y/o female comes for evaluation of migraines and chiari 1 malformation .Frequency of migraines decreased to during her menstrual periods - takes advil or tries to sleep.It starts 2-3 days before periods and can last for 2-3 days after her periods end .she did not like topiramate 50mg - felt she had bruxism at higher dose at night so decreased to 25 mg qhs History from initial visit-Her daughter helps with history.she started with migraines in her teenage years . For the past 6 mths she notice dincrease in frequency and intensity of ehr headaches. Her PCP started her on Topiramate- but she stallings snot started it yet. she describes the headaches as unifrontal or unitemporal and radiates to the back and around her eyes.It is mostly on her right but sometimes has bilateral headaches. Character-pulsating, pounding Location-right frontotemporal Accompanying symptoms- nausea, dizziness Photophobia + and phonophobia + Visual aura-none No blurry vision Sensory aura- none Duration- now daily for weeks Frequency - used to be 1-2 /month now has daily headaches ABORTIVE meds- advil 200-600 mg as needed - once a day , sumatriptan - did not help Preventive- gabapentin , topiramate MRI brain showed chiari 1 PFSH Medical History External hemorrhoid Hyperreflexic Chronic migraine without aura, intractable, without status migrainosus Cervicalgia Anemia Undifferentiated connective tissue disease Abnormal antibody titer Spondylosis of lumbosacral spine with radiculopathy Trochanteric bursitis, right hip Bilateral hand pain Chronic pain of toes of both feet Raynaud phenomenon Dizziness Obese Left knee pain Surgical History Osteochondroma of left lower leg H/O carpal tunnel repair S/P ORIF (open reduction internal fixation) fracture History of gastrectomy History of tubal ligation History of appendectomy Family History Mother No problems noted. Father Diabetes mellitus Maternal Aunt Breast cancer Social History Housing: House Alcohol intake: current Alcohol intake frequency: holidays/special occasions only Alcohol type: hard liquor Patient Tobacco Use Status: Never used Tobacco e-Cigarette/Vaping Use: Never Used Second Hand Smoke Exposure: No service: No Current occupational status: unemployed Cognitive needs: No Hearing needs: No Vision needs: Yes Female Reproductive History Menstrual Age of Menarche: 13 Physical Exam Vital Signs: Last Vital Signs Pulse 93 07/13/25 09:24 BP 106/78 07/13/25 09:24 Pulse Ox 99 07/13/25 09:24 Oxygen Delivery Method Room Air 07/13/25 09:24 BMI result Body Mass Index 28.9 Const General: cooperative, healthy appearing and comfortable Nutritional Appearance: obese Orientation/consciousness: patient oriented x3 Eyes Pupils: Equal, round and reactive pupils present Neuro Other: Neck- restricted range of motion with tenderness in lateral cervical muscles General: patient oriented x3, tone normal, moves all extremities and no focal motor deficits Cranial nerves: Yes Facial sensation intact/muscles of mastication intact, Yes Equal, round and reactive pupils present, Yes Bilaterally intact EOM present, Yes Nystagmus not present, Yes Normal facial strength present, Yes Midline tongue present and Yes Symmetric palate elevation present Cognition (Neuro): normal cognition Gait exam (Neuro): Antalgic gait present Motor exam (neuro): 5/5 motor strength present throughout and Normal motor muscle tone present throughout Coordination: [id number] test normal Assessment & Plan Assessment & Plan (1) Chronic migraine without aura, intractable, without status migrainosus: Code(s): G43.719 - Chronic migraine without aura, intractable, without status migrainosus Category: Medical (2) Cerebellar tonsillar ectopia: Comment: chiari 1 Code(s): Q04.8 - Other specified congenital malformations of brain Category: Medical (3) Hyperreflexic: Comment: ? spinal stenosis Code(s): R29.2 - Abnormal reflex Category: Medical Plan magnesium 400mg qhs Riboflavin 400mg qam topiramate Xr 50mg qhs Gabapentin 600mg bid Cyclobenzaprine 5mg qhs Increase ropinirole 0.5 mg 1-2 tabs qhs Orders: Orders MR lumbar spine wo con Today M47.816 - Spondylosis without myelopathy or radiculopathy, lumbar region Medications: Changed From topiramate XR 50 mg (2 x 25 mg) PO DAILY 90 days 180 caps 1RF migraines MDD 50mg To topiramate XR 25 mg PO DAILY 90 caps 1RF migraines 90 days From ropinirole administer 1-3 hours before bedtime 0.25 mg PO BEDTIME 90 days 90 tabs 0RF To ropinirole 0.5 mg orally 1-2 tabs at bedtime; administer 1-3 hours before bedtime 180 tabs 0RF 90 days Refilled riboflavin (vitamin B2) 400 mg PO QAM 30 tabs 6RF magnesium oxide 400 mg PO BEDTIME 30 tabs 6RF Coding Level of Care Code Est Pt Level 4 (97991) Add On Problem Visit Only Diagnoses Chronic migraine without aura, intractable, without status migrainosus G43.719 Cerebellar tonsillar ectopia Q04.8 Hyperreflexic R29.2
== END 2025-07-13 09:58 | disposition home or self-care (01) ==
LOC: HO.HSMS 09:21
PROVIDERS: PCP Internal Medicine; Visit Provider Psychiatry & Neurology Neurology
DX: G43.719 Chronic migraine without aura, intractable, without status migrainosus (principal); Q04.8 Other specified congenital malformations of brain; R29.2 Abnormal reflex
CPT/HCPCS: 99214

== ENCOUNTER 2025-07-22 12:31 | Outpatient (REF) | payer OTHER, SELFPAY ==
--- NOTE | ~2025-07-22 | XR_ITS ---
EXAMINATION: XR SHOULDER 2 OR MORE VIEWS RIGHT HISTORY: M25.511 - Pain in right shoulder COMPARISON: There are no prior studies available for comparison. FINDINGS: Four views of the right shoulder are submitted. Osseous mineralization is normal. There is no fracture or dislocation. The glenohumeral and acromioclavicular joint spaces are preserved. Densities about the greater tuberosity of the humerus may be related to the rotator cuff. XR/XR shoulder RT min 2V IMPRESSION: Possible rotator cuff calcifications. Otherwise unremarkable examination of the right shoulder. Electronically signed by: Braulio Núñez MD 07/22/2025 12:49 PM EST
--- OUTSIDE RECORDS SUMMARY | 2025-07-22 12:33 | XMS_ITS | Data Portability ---
Author Organization [place] - [facility], Allergy Address [address] [facility] [address] [place] [id number] Care Team Providers Care Bike Designer Name Role Phone CASTRO SANCHEZ Primary Care Provider Assessment Encounter Date Assessment Date Assessment LastModified by Organization Details LastModified Time 03/04/2025 03/04/2025 44-year-old female with history of migraine presents for an incidental finding of a right maxillary mucous retention cyst on a brain MRI performed during her migraine work-up. Unfortunately, only the report is available for review today. Anterior rhinoscopy today does not reveal any structural abnormalities of the nose or purulent nasal drainage. Discussed that we will need a copy of her MRI images in order to determine the size of the cyst and determine if it is contributing to the headaches that originate in her right eye and radiate to her occiput. Patient agrees to obtain the MRI images on a disc and drop them off at the office. Will review the results with her through the portal or over the phone and determine if surgery is indicated. Patient dropped off the MRI images shortly after the visit, which revealed a small, non-obstructing cyst of the right maxillary sinus. Very unlikely that this cyst is contributing to her headaches. No surgical intervention is recommended at this time. [email or web address] Not available 03/04/2025 12:46:11 Plan of Treatment Reminders Order Date Submit Date Provider Last Modified By Organization Details Last Modified Time Details Appointments None record ed. Lab None record ed. Referral None record ed. Procedures None record ed. Surgeries None record ed. Imaging None record ed. Medication Orders None record ed. Patient TargetsNo targets recorded. Patient InstructionsNo instructions recorded. Reason for Referral None Reported. Results Created Date Observation Date Name Description Value Unit Range Abnormal Flag Note LastModifiedBy Organization Detail LastModifiedTime 03/04/2011/20/2024 MRI, brain stem, w/o contr ast No observ ation record ed. [email or web address] Not Available 02/2025 12:19:53 Result Notes None recorded. 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 Medical Equipment None Reported. Medications Name Sig Start Date Stop Date Status Note LastModified by Organization Details LastModified Time cyclobenzapr ine 5 mg tablet TAKE 1 TABLET BY MOUTH EVERYDAY AT BEDTIME active Not Available Not Available No t Available Zepbound 15 mg/0.5 mL subcutaneous pen injector INJECT 15 MG SUBCUTANEOU SLY ONCE WEEKLY FOR 4 WEEKS. active Not Available Not Available No t Available Vitals Date Recorded Body height Body mass index (BMI) Body weight Provider Name and Address Organization Details Last Updated DateTime 03/04/2025 162.56 cm 34.3 kg/m2 80869.47 g Lorena Rider [place] - [facility] 03/04/2025 10:38:49 Social History Question Answer Notes LastModified by Organizat ion Details LastModified Time Tobacco Smoking Status Never Smoker Lorena zaldivar [facility] 03/04/2025 10:36:54 How Many Alcoholic Drinks Do You Consume Per Day On Average? 0 [email or web address] Information not available 03/04/2025 Do You Have Any Pets? Yes [email or web address] Information not available 03/04/2025 Are You Passively Exposed To Smoke? No [email or web address] Information not available 03/04/2025 Are There Any Smokers In Your House? No Information not available 03/04/2025 Sex: Unknown Functional Status Question Answer Note LastModified by Organizat ion Details LastModified Time How many times per week do you consume alcohol? Less than 1 time per week [email or web address] Information not available 03/04/2025 Do you use any illicit or recreational drugs? No [email or web address] Information not available 03/04/2025 Do you or have you ever used any other forms of tobacco or nicotine? No [email or web address] Information not available 03/04/2025 What is your level of alcohol consumption? Occasional [email or web address] Information not available 03/04/2025 Mental Status None recorded. Family History Nothing Reported. Medical History Condition Response Allergies/Hayfever Y Heart Problems N Anxiety Y Tonsil Infections N Emphysema N Migraines Y Thyroid Problems N COPD N Depression Y Developmental Delay N Glaucoma N Nasal or Sinus Problems N Immune System Disorder N Anesthesia Complications N Heart Attack ([place]) N Other Skin Condition N Diabetes N Rhinitis N Bleeding Disorder N Food Allergy N Hearing Loss N Arthritis Y Hyperlipidemia N Cancer N Stroke N Dementia N Nasal polyps N Asthma Y Sleep Disorder N High Cholesterol N GERD/Reflux N Liver Disease N Headaches Y Fibromyalgia Y Hypertension N Speech Delay N Kidney Disease N Gynecological HistoryNo gynecological history recorded. Obstetrics History GPAL:G 0 P 0 0 0 0 Past Encounters Encounter ID Performer Location Encounter Start Date Encounter Closed Date Diagnosis/Indication Diagnosis SNOMED-CT Code Diagnosis ICD10 Code Diagnosis IMO Codes Diagnosis Note [id number] JASPREET GARCIA MD [facility] [address] [id number] 03/04/2025 10:21:20 03/04/2025 10:49:54 Mucocele of maxillary sinus 0380100503 [id number] J34.1 [id number] History of migraine 1614 78047 Z86.69 [id number] Health Concerns Section Related Observation LastModified by Organization Detai ls LastModified Time None Recorded Concern Status LastModified by Organization Details LastModified Time None Recorded Advance Directives Directive None Recorded Payers Insurance Date Sequence Insurance Name Policy Number Policy Melvin Covered Member ID Melvin Member ID Guarantor Name 03/04/2025 1 [facility] [employer] (MEDICAID REPLACEMENT - HMO) LUCERO Lobo [id number] Nidia Lobo Notes Date Note Type Note Provider Name and Address Organization Details Recorded Time 03/04/2025 text/html ROS as noted in the HPI 44-year-old female presents for evaluation of a cyst found incidentally on a brain MRI performed during a migraine work-up. Patient states the MRI was performed at [facility], but we unfortunately did not have the images available to review during the office visit. Report shows a right maxillary mucous retention cyst. Patient is unsure what side the cyst was found on. Patient describes her migraine headaches as starting in the right eye and radiating to the occiput. She denies oral pain, tooth pain, sinus pressure/pain, sinus infections, nasal drainage, nasal congestion, facial trauma, or history of head/neck surgeries. Denies any use of nasal sprays or oral allergy medications. Recently started topiramate for her migraines (managed by Dr. Brittney Hendricks). JASPREET STARKS MD [address] [place] [address], [place], [phone], [facility] - [facility] 03/04/2025 13:08:44 OBGyn Episode No OBEpisode recorded.
--- OUTSIDE RECORDS SUMMARY | 2025-07-22 12:33 | XMS_ITS | Clinical Summary ---
Author Organization [facility] Address [address] [place], [place] [id number] Care Team Providers Care Orthodontic Assistant Name Role Phone Alee Shine Unavailable Alee Shine Primary Care Provider [phone] Allergies Active Allergy Reactions Criticality Noted Date Comments Tramadol GI Intolerance,Other (See Comments) Other Reaction(s): dizzy Medications diclofenac sodium (VOLTAREN) 1 % Gel as directed and as needed 09/27/2022 Active gabapentin (NEURONTIN) 600 MG tablet 1 tablet(s) by mouth twice a day as needed for pain 09/27/2022 Active oxyCODONE (ROXICODONE) 5 MG immediate release tablet 1 tablet(s) by mouth q4h prn 10 tablet 0 10/11/2022 Active Social History Tobacco Use Types Packs/Day Years Used Date Smoking Tobacco: Never Assessed Comments Unknown Sex and Gender Information Value Date Recorded Sex Assigned at Female 09/11/2023 11:50 PM EST Legal Sex Female 11:50 PM EST Gender Identity Unable to obtain 09/11/2023 11:5 0 PM EST Sexual Orientation Not on file Last Filed Vital Signs Vital Sign Reading Time Taken Comments Blood Pressure - - Pulse - - Temperature - - Respiratory Rate - - Oxygen Saturation - - Inhaled Oxygen Concentration - - Weight 97.1 kg (214 lb) 06/25/2023 12:0 0 AM EST Legacy value: 214 lbs Height 167.6 cm (5' 6 ) 06/25/2023 12:0 0 AM EST Legacy value: 66 in Body Mass Index 34.54 06/25/2023 12:00 AM EST Plan of Treatment Health Maintenance Due Date Last Done Comments Blood Pressure 1981 Lipid Panel 1981 Depression Screening 1993 Hepatitis C Screening 1999 DTaP,Tdap,and Td Vaccines (1 - Tdap) 2000 Pap Smear 2002 Cervical Cancer Screening 2011 HPV/Cotest 2011 Breast Cancer Screening 2021 COVID-19 Vaccine (1 - 2024-2 6 season) 2025 Influenza Vaccine (#1) 2025 Meningococcal B Vaccines Aged Out No longer eligible based on patient's age to complete this topic Meningococcal Vaccines Aged Out No lo nger eligible based on patient's age to complete this topic Pneumococcal Vaccine Aged Out No long er eligible based on patient's age to complete this topic Insurance ([place]) [address] [facility] Care Teams Orthodontic Assistant Relationship Specialty Start Date End Date Alee Shine [address] [place] [address] PCP - Insurance Assigned PCP 01/22/[address] [place] [address] PCP - General 02/18/24
== END 2025-07-22 12:32 | disposition home or self-care (01) ==
LOC: HO.HMGCX 12:31
PROVIDERS: PCP Internal Medicine; Visit Provider Internal Medicine Rheumatology
DX: M25.511 Pain in right shoulder (principal)
CPT/HCPCS: 73030

== ENCOUNTER → 2025-07-22 12:34 | Outpatient (BNV) | payer OTHER, SELFPAY | PROVIDERS: PCP Internal Medicine; Visit Provider Radiology Diagnostic Radiology | DX: M25.511 Pain in right shoulder (principal) | CPT/HCPCS: 73030 ==